=== PATIENT | male | born 1955 | race Caucasian/White ===

== ENCOUNTER 2020-08-20 09:49 | Inpatient (IN) ==
[2020-08-20] MEDS ORDERED: PANTOprazole 80 MG in DEXTROSE 5% 100 ML IV STA (10:37)
[2020-08-20] MEDS ORDERED: SODIUM CHLORIDE 0.9% 1000ML 1,000 ML IV SCH (10:45)
[2020-08-20 10:46] LABS: Basophils # (auto) 0.01 K/uL (0-0.2); Basophils % (auto) 0.1 %; Hematocrit (blood only) 32.6 % (42-52); Immature Granulocytes # (auto) 0.08 K/uL (0.00-0.02); Immature Granulocytes % (auto) 0.7 %; Lymphocytes % (auto) 15.9 %; Mean Corpuscular Hemoglobin 31.7 pg (25-34); Mean Corpuscular Hgb Conc 33.7 g/dL (32-36); Mean Corpuscular Volume 93.9 fL (80-100); Mean Platelet Volume 10.3 fL (7.4-10.4); Monocytes # (auto) 0.31 K/uL (0.11-0.59); Monocytes % (auto) 2.6 %; Neutrophils # (auto) 9.62 K/uL (1.4-6.5); Neutrophils % (auto) 80.7 %; Platelet Count 267 K/uL (130-400); RDW Coefficient of Variation 13.5 % (11.5-14.5); Red Blood Count 3.47 M/uL (4.7-6.1); White Blood Count 11.92 K/uL (4.8-10.8)
[2020-08-20 10:55] LABS: Alanine Aminotransferase 38 U/L (12-78); Albumin Level 3.1 gm/dl (3.4-5.0); Aspartate Aminotransferase 18 U/L (15-37); Blood Urea Nitrogen 55 mg/dl (7-18); Calcium 8.3 mg/dl (8.5-10.1); Carbon Dioxide 28 mmol/L (21-32); Chloride 110 mmol/L (98-107); Est GFR (African American) 59.4; Est GFR (Non-African American) 51.2; Glucose 251 mg/dl (70-99); Lipase 69 U/L (73-393); Potassium 4.2 mmol/L (3.5-5.1); Sodium 140 mmol/L (136-145)
[2020-08-20 11:00] LABS: Alkaline Phosphatase 46 U/L (45-117); Bilirubin,Total 0.7 mg/dl (0.2-1); Globulin 3.2 gm/dl (2.5-4.0); Total Protein 6.3 gm/dl (6.4-8.2); Troponin I < 0.015 ng/ml (0-0.045)
--- NOTE | 2020-08-20 11:18 | XRay Report ---
XR chest 1V portable HISTORY: 64 years-old Male syncope, fall, L cp acute syncope with left-sided chest pain status post fall COMPARISON: Chest radiograph 02/26/2015 TECHNIQUE: Portable AP view of the chest FINDINGS: Cardiac silhouette is mildly enlarged. No pneumothorax, pleural effusion or overt pulmonary edema. Mi ld interstitial coarsening of the lung bases. Degenerative changes of the shoulders and spine. Mild c ortical irregularity noted involving the lateral left ninth rib. IMPRESSION: 1. No acute cardiopulmonary abnormality. 2. Mild cortical irregularity involving the lateral left ninth rib. Correlate with point tenderness t o exclude an acute rib fracture. ACT 112: Negative or not required by law. The above report was generated using voice recognition software. It may contain grammatical, syntax o r spelling errors. Electronically signed by: Hilario Sol M.D. 08/20/2020 11:17 AM
[2020-08-20 11:28] LABS: INR 1.1 (0.9-1.1); Partial Thromboplastin Ratio 0.8; Partial Thromboplastin Time 21.1 Seconds (21.0-31.0); Prothrombin Time 11.3 Seconds (9.0-12.0)
[2020-08-20] MEDS ORDERED: IOVERSOL 100ml IV ONE (11:29)
--- NOTE | 2020-08-20 11:39 | Emergency Department Note ---
Impression & Plan Melena, Syncope, Elevated lactic acid level, Multiple fractures of ribs ED Provider Note Provider: Jason Berry MD DATE OF SERVICE:08/20/2020 CHIEF COMPLAINT: Syncope, black diarrhea HISTORY OF PRESENT ILLNESS: Patient is a 64-year-old gentleman with a history of hypertension and CVA presenting here today stating overnight had multiple episodes of black diarrhea overnight. Denies nausea or vomiting. Denies significant selena pain. Patient states he syncopized several times last night in the bathroom did fall and hit his head. Denies any given head pain. States he did bruise his right lip. Denies use of blood thinners but did take aspirin 2 days ago but inconsistently before that. Recent travel to visit his mother but denies sick contact. Denies shortness of breath states his little bit of pain initially he stated little bit of left anterior chest but later in the right anterior chest he states due to the fall. Denies injury to the extremity states he is having hands and needle sensation in his hands and feet. Patient denies use of alcohol use or other NSAIDs. Denies a history of gastric ulcerations to me. Denies any bright red blood in his stool. States he feels weak. REVIEW OF SYSTEMS: A total of 10 review of systems was obtained and negative except as stated above in the HPI. PAST MEDICAL HISTORY: As noted above MEDICATIONS: Reviewed home medications with the patient although he has been taking inconsistently he reports and did not take any blood pressure medicine this morning SOCIAL HISTORY: Denies heavy alcohol use. Non-smoker PHYSICAL EXAM: GENERAL: alert and oriented in no acute distress on stretcher but appears fatigued Head: normocephalic with some swelling overlying the right upper lip but no evidence of acute laceration. EYES: No injection, discharge or icterus. PERRL, EOMI. NECK: Trachea midline. Supple. ENT: Mucous membranes pink and moist. Pharynx without erythema or exudate. LUNGS: Airway patent. No retractions. Breath sounds clear with good air entry bilaterally.There is some dried blood at the bilateral nares without septal hematoma. HEART: Regular rate and rhythm. Initially some left chest wall tenderness on later reexam now more some right chest wall tenderness. ABDOMEN: Soft and non-tender, without guarding or rebound. No gross masses appreciated Rectal: With nurse mule spinner dried black melena present at the anal verge tested positive Hemoccult, no active red bleeding noted. SKIN: Acyanotic, warm, dry, without rashes EXTREMITIES: Without swelling, tenderness or deformity NEUROLOGICAL: No focal deficits. No aphasia. No facial droop or slurred speech. Normal strength and tone in the extremities. EK bpm sinus rhythm with rare fusion complex. No acute ST segment elevation noted question some ST depression in lead II. T wave inversion in aVF noted. Compared to previous from February 262014 no longer lateral ST changes but again question some lead to inferior changes in the ST segment. CONTINUOUS CARDIAC MONITORING: was ordered and showed a heart rate of 80s bpm in normal sinus rhythm GCS 15. Patient's laboratory studies and imaging reviewed. Differential includes Infection, dehydration, metabolic abnormality, hypo/hyperglycemia, electrolyte disturbance, anemia, hypoxia, cardiac sources, intracerebral event, toxicologic, neurologic, GI bleed, gastrointestinal as well as other pathologies. IMPRESSION/MEDICAL DECISION MAKING: Patient presents after multiple syncopal episodes and some black diarrhea last night. Hemoccult positive. Denies any vomiting or hematemesis. Denies significant history of alcohol abuse gastric ulcers to me. Patient does have some lip swelling after a fall last night imaging of the head face and neck were completed. Planes a low bit of right-sided chest pain and imaging of the chest as well as the abdomen pelvis given the bleeding was obtained. Given an 80 mg dose of Protonix here as well as 2 L of IV fluid. Hemoglobin is 11 today co mpared to 2-month ago that was 16. White count of 11.9 is noted. Some ISIDORO with a creatinine of 1.45 noted and lactate elevation of 5.6 noted. No troponin elevation. No evidence acute hepatitis or pancreatitis based on laboratory studies. Alcohol and blood cultures was added on after laboratory studies. CT the head and cervical spine without acute traumatic injury noted per radiology report and was completed given the fact that he fell and syncopized. CT of the face given some swelling of the right upper lip was noted and some bloody nose. Patient has some slight nasal tenderness and CT face questions a nasal fracture which is likely acute as he does have some tenderness here. CT t he chest and abdomen pelvis per radiology show possible evidence per radiology report of left third through sixth rib fractures. Patient again initially told me he suffered some left chest pain but on reevaluation stated it was more right-sided; unsure if he is the best historian. Luckily no pneumothorax is noted and no evidence of bowel obstruction or other inflammatory state such as diverticulitis in the abdomen is noted. Discussed with the patient given that his hemoglobin is dropped some and having melanotic stools with multiple syncopal episodes further observation and care here at the hospital he was in agreement. Hospitalist contacted. Do not believe the patient requires acute blood transfusion at this time. Covid test was negative. Medical alcohol returns undetectable. DIAGNOSIS: Melena, syncope, elevated lactate, multiple rib fractures DISPOSITION: Hospitalist will evaluate Patient was agreeable with this plan. Past Med/Surg History Medical History (Updated 08/20/20 @ 13:02 by Jason Berry M.D.) CVA (cerebral vascular accident) (~2013) Erectile disorder due to medical condition in male Gastric ulcer EGD (12/11) due to ongoing GI symptoms revealed nonbleeding gastric ulcer, duodenitits, esophagitis. [place] to be related to ASA use. Previously on chronic acid suppression with omeprazole Hyperlipidemia Hypertension Obstructive sleep apnea on CPAP Psoriasis Tubular adenoma of colon Screening colonoscopy (07/12) with tubular adenoma. 5 year follow up recommended (07/17) Surgical History No history of previous surgery Family History Mother Breast cancer Sister Breast cancer Father Myocardial infarction Grandfather Colon cancer maternal great grandfather Denies family history of Ovarian cancer Prostate cancer Social History Smoking Status: Never smoker Hx Alcohol Use: Yes Hx Substance Use: No Preferred Language: Indonesian marital status: / Current Living Situation: Alone current occupational status: employed current occupation: Musician Feels Safe at Home: Yes Childhood Exposure to Second-Hand Smoke: No Dental Care, Regularly: No Physical Activity Frequency: Daily Seatbelt Use: always Allergies Allergies Allergy/AdvReac Type Severity Reaction Status Date / Time lisinopril AdvReac cough Verified 08/20/20 11:07 Home Meds Home Medications Medication Instructions Recorded Confirmed aspirin 325 mg tablet 325 mg PO DAILY #30 tab 03/02/19 08/20/20 hydrochlorothiazide 25 mg tablet 12.5 mg PO QAM tab 06/21/20 08/20/20 losartan 100 mg PO QAM 08/20/20 08/20/20 Previous Rx's Medication Instructions Recorded guselkumab 100 mg/mL subcutaneous 100 mg SQ .COMPLEX #1 ml 08/10/20 auto-injector Results & Data (ED) Vital Signs Vital Signs - 24 hr 08/20/20 09:58 08/20/20 10:05 08/20/20 10:21 Temperature 35.3 C L 36.4 C L Temperature Source Temporal Artery Scan Oral Pulse Rate 93 H Pulse Rate [Apical] Pulse Rate from SpO2 Sensor Respiratory Rate 20 18 Respiratory Effort / Characteristics Non-Labored Spontaneous Blood Pressure 102/71 122/69 Blood Pressure [Left Arm] Blood Pressure Mean 81 86 Blood Pressure Mean [Left Arm] Blood Pressure Position Sitting Pulse Oximetry Oxygen Delivery Method Room Air Sepsis Recent Fever Within 48 Hours No Sepsis New/Unexplained Change in Mental Status No Sepsis Action Taken by Nursing No Action Required 08/20/20 10:24 08/20/20 10:26 08/20/20 10:30 Temperature Temperature Source Pulse Rate 93 H 93 H Pulse Rate [Apical] 93 H Pulse Rate from SpO2 Sensor Respiratory Rate 12 18 Respiratory Effort / Characteristics Blood Pressure Blood Pressure [Left Arm] Blood Pressure Mean Blood Pressure Mean [Left Arm] Blood Pressure Position Pulse Oximetry Oxygen Delivery Method Sepsis Recent Fever Within 48 Hours Sepsis New/Unexplained Change in Mental Status Sepsis Action Taken by Nursing 08/20/20 10:39 08/20/20 11:42 08/20/20 12:00 Temperature Temperature Source Pulse Rate 92 H 82 Pulse Rate [Apical] 82 Pulse Rate from SpO2 Sensor 83 Respiratory Rate 12 16 13 Respiratory Effort / Characteristics Blood Pressure 111/76 115/81 Blood Pressure [Left Arm] 114/78 Blood Pressure Mean 87 92 Blood Pressure Mean [Left Arm] 90 Blood Pressure Position Pulse Oximetry 97 98 Oxygen Delivery Method Room Air Room Air Sepsis Recent Fever Within 48 Hours Sepsis New/Unexplained Change in Mental Status Sepsis Action Taken by Nursing 08/20/20 12:31 08/20/20 13:00 08/20/20 13:30 Temperature Temperature Source Pulse Rate 84 82 87 Pulse Rate [Apical] Pulse Rate from SpO2 Sensor 83 Respiratory Rate 18 18 Respiratory Effort / Characteristics Blood Pressure 132/81 Blood Pressure [Left Arm] Blood Pressure Mean 98 Blood Pressure Mean [Left Arm] Blood Pressure Position Pulse Oximetry 96 Oxygen Delivery Method Room Air Room Air Sepsis Recent Fever Within 48 Hours Sepsis New/Unexplained Change in Mental Status Sepsis Action Taken by Nursing 08/20/20 14:00 Temperature Temperature Source Pulse Rate 85 Pulse Rate [Apical] Pulse Rate from SpO2 Sensor Respiratory Rate 16 Respiratory Effort / Characteristics Blood Pressure 156/89 H Blood Pressure [Left Arm] Blood Pressure Mean 111 Blood Pressure Mean [Left Arm] Blood Pressure Position Pulse Oximetry Oxygen Delivery Method Room Air Sepsis Recent Fever Within 48 Hours Sepsis New/Unexplained Change in Mental Status Sepsis Action Taken by Nursing Laboratory Data Result diagrams: 08/20/20 10:15 08/20/20 10:15 Lab Results 08/20/20 08/20/20 08/20/20 Range/Units 10:15 10:15 10:15 WBC 11.92 H (4.8-10.8) K/uL RBC 3.47 L (4.7-6.1) M/uL Hgb 11.0 L (14.0-18.0) g/dL Hct 32.6 L (42-52) % MCV 93.9 (80-100) fL MCH 31.7 (25-34) pg MCHC 33.7 (32-36) g/dL RDW Std Deviation 46.0 (36.4-46.3) fL RDW Coeff of Aletha 13.5 (11.5-14.5) % Plt Count 267 (130-400) K/uL MPV 10.3 (7.4-10.4) fL Immature Gran % (Auto) 0.7 % Neut % (Auto) 80.7 % Lymph % (Auto) 15.9 % Edgar % (Auto) 2.6 % Eos % (Auto) 0.0 % Baso % (Auto) 0.1 % Neut # (Auto) 9.62 H (1.4-6.5) K/uL Lymph # (Auto) 1.90 (1.2-3.4) K/uL Edgar # (Auto) 0.31 (0.11-0.59) K/uL Eos # (Auto) 0.00 (0-0.5) K/uL Baso # (Auto) 0.01 (0-0.2) K/uL Immature Gran # (Auto) 0.08 H (0.00-0.02) K/uL PT Cancelled INR Cancelled APTT Cancelled PTT Ratio Cancelled Sodium 140 (136-145) mmol/L Potassium 4.2 (3.5-5.1) mmol/L Chloride 110 H (98-107) mmol/L Carbon Dioxide 28 (21-32) mmol/L Anion Gap 2.0 L (3-11) BUN 55 H (7-18) mg/dl Creatinine 1.45 H (0.6-1.4) mg/dl Est Cr Clr Drug Dosing Not Reportable Est GFR ( Amer) 59.4 Est GFR (Non-Af Amer) 51.2 BUN/Creatinine Ratio 38.0 H (10-20) Glucose 251 H (70-99) mg/dl Lactate (0.4-2.0) mmol/L Calcium 8.3 L (8.5-10.1) mg/dl Total Bilirubin 0.7 (0.2-1) mg/dl AST 18 (15-37) U/L ALT 38 (12-78) U/L Alkaline Phosphatase 46 (45-117) U/L Troponin I < 0.015 (0-0.045) ng/ml Total Protein 6.3 L (6.4-8.2) gm/dl Albumin 3.1 L (3.4-5.0) gm/dl Globulin 3.2 (2.5-4.0) gm/dl Albumin/Globulin Ratio 1.0 (0.9-2) Lipase 69 L (73-393) U/L POC Stool Occult Blood (Negative) Ethyl Alcohol mg/dL (0-3) mg/dl COVID-19 Eval Order SARS-CoV-2, RNA, NAAT (NEGATIVE) Blood Type Antibody Screen 08/20/20 08/20/20 08/20/20 Range/Units 10:57 10:57 11:09 WBC (4.8-10.8) K/uL RBC (4.7-6.1) M/uL Hgb (14.0-18.0) g/dL Hct (42-52) % MCV (80-100) fL MCH (25-34) pg MCHC (32-36) g/dL RDW Std Deviation (36.4-46.3) fL RDW Coeff of Aletha (11.5-14.5) % Plt Count (130-400) K/uL MPV (7.4-10.4) fL Immature Gran % (Auto) % Neut % (Auto) % Lymph % (Auto) % Edgar % (Auto) % Eos % (Auto) % Baso % (Auto) % Neut # (Auto) (1.4-6.5) K/uL Lymph # (Auto) (1.2-3.4) K/uL Edgar # (Auto) (0.11-0.59) K/uL Eos # (Auto) (0-0.5) K/uL Baso # (Auto) (0-0.2) K/uL Immature Gran # (Auto) (0.00-0.02) K/uL PT 11.3 INR 1.1 APTT 21.1 PTT Ratio 0.8 Sodium (136-145) mmol/L Potassium (3.5-5.1) mmol/L Chloride (98-107) mmol/L Carbon Dioxide (21-32) mmol/L Anion Gap (3-11) BUN (7-18) mg/dl Creatinine (0.6-1.4) mg/dl Est Cr Clr Drug Dosing Est GFR ( Amer) Est GFR (Non-Af Amer) BUN/Creatinine Ratio (10-20) Glucose (70-99) mg/dl Lactate 5.6 H* (0.4-2.0) mmol/L Calcium (8.5-10.1) mg/dl Total Bilirubin (0.2-1) mg/dl AST (15-37) U/L ALT (12-78) U/L Alkaline Phosphatase (45-117) U/L Troponin I (0-0.045) ng/ml Total Protein (6.4-8.2) gm/dl Albumin (3.4-5.0) gm/dl Globulin (2.5-4.0) gm/dl Albumin/Globulin Ratio (0.9-2) Lipase (73-393) U/L POC Stool Occult Blood (Negative) Ethyl Alcohol mg/dL (0-3) mg/dl COVID-19 Eval Order SARS-CoV-2, RNA, NAAT (NEGATIVE) Blood Type A Positive Antibody Screen NEGATIVE 08/20/20 08/20/20 08/20/20 Range/Units 11:35 12:57 14:09 WBC (4.8-10.8) K/uL RBC (4.7-6.1) M/uL Hgb (14.0-18.0) g/dL Hct (42-52) % MCV (80-100) fL MCH (25-34) pg MCHC (32-36) g/dL RDW Std Deviation (36.4-46.3) fL RDW Coeff of Aletha (11.5-14.5) % Plt Count (130-400) K/uL MPV (7.4-10.4) fL Immature Gran % (Auto) % Neut % (Auto) % Lymph % (Auto) % Edgar % (Auto) % Eos % (Auto) % Baso % (Auto) % Neut # (Auto) (1.4-6.5) K/uL Lymph # (Auto) (1.2-3.4) K/uL Edgar # (Auto) (0.11-0.59) K/uL Eos # (Auto) (0-0.5) K/uL Baso # (Auto) (0-0.2) K/uL Immature Gran # (Auto) (0.00-0.02) K/uL PT INR APTT PTT Ratio Sodium (136-145) mmol/L Potassium (3.5-5.1) mmol/L Chloride (98-107) mmol/L Carbon Dioxide (21-32) mmol/L Anion Gap (3-11) BUN (7-18) mg/dl Creatinine (0.6-1.4) mg/dl Est Cr Clr Drug Dosing Est GFR ( Amer) Est GFR (Non-Af Amer) BUN/Creatinine Ratio (10-20) Glucose (70-99) mg/dl Lactate (0.4-2.0) mmol/L Calcium (8.5-10.1) mg/dl Total Bilirubin (0.2-1) mg/dl AST (15-37) U/L ALT (12-78) U/L Alkaline Phosphatase (45-117) U/L Troponin I (0-0.045) ng/ml Total Protein (6.4-8.2) gm/dl Albumin (3.4-5.0) gm/dl Globulin (2.5-4.0) gm/dl Albumin/Globulin Ratio (0.9-2) Lipase (73-393) U/L POC Stool Occult Blood Positive A (Negative) Ethyl Alcohol mg/dL < 3.0 (0-3) mg/dl COVID-19 Eval [facility] SARS-CoV-2, RNA, NAAT (NEGATIVE) Blood Type Antibody Screen 08/20/20 Range/Units 14:09 WBC (4.8-10.8) K/uL RBC (4.7-6.1) M/uL Hgb (14.0-18.0) g/dL Hct (42-52) % MCV (80-100) fL MCH (25-34) pg MCHC (32-36) g/dL RDW Std Deviation (36.4-46.3) fL RDW Coeff of Aletha (11.5-14.5) % Plt Count (130-400) K/uL MPV (7.4-10.4) fL Immature Gran % (Auto) % Neut % (Auto) % Lymph % (Auto) % Edgar % (Auto) % Eos % (Auto) % Baso % (Auto) % Neut # (Auto) (1.4-6.5) K/uL Lymph # (Auto) (1.2-3.4) K/uL Edgar # (Auto) (0.11-0.59) K/uL Eos # (Auto) (0-0.5) K/uL Baso # (Auto) (0-0.2) K/uL Immature Gran # (Auto) (0.00-0.02) K/uL PT INR APTT PTT Ratio Sodium (136-145) mmol/L Potassium (3.5-5.1) mmol/L Chloride (98-107) mmol/L Carbon Dioxide (21-32) mmol/L Anion Gap (3-11) BUN (7-18) mg/dl Creatinine (0.6-1.4) mg/dl Est Cr Clr Drug Dosing Est GFR ( Amer) Est GFR (Non-Af Amer) BUN/Creatinine Ratio (10-20) Glucose (70-99) mg/dl Lactate (0.4-2.0) mmol/L Calcium (8.5-10.1) mg/dl Total Bilirubin (0.2-1) mg/dl AST (15-37) U/L ALT (12-78) U/L Alkaline Phosphatase (45-117) U/L Troponin I (0-0.045) ng/ml Total Protein (6.4-8.2) gm/dl Albumin (3.4-5.0) gm/dl Globulin (2.5-4.0) gm/dl Albumin/Globulin Ratio (0.9-2) Lipase (73-393) U/L POC Stool Occult Blood (Negative) Ethyl Alcohol mg/dL (0-3) mg/dl COVID-19 Eval Order SARS-CoV-2, RNA, NAAT NEGATIVE (NEGATIVE) Blood Type Antibody Screen Administered Medications Pantoprazole Sodium 40 mg/ (Dextrose) 100 mls @ 20 mls/hr IV Q5H ALBER Stop: 09/19/20 13:59 Last Admin: 08/20/20 14:39 Dose: 8 mg/hr, 20 mls/hr Documented by: [id number] Discontinued Medications Sodium Chloride (Nss 1000ml) 1,000 mls @ 999 mls/hr IV .Q1H1M ALBER Stop: 08/20/20 11:45 Last Infusion: 08/20/20 12:40 Dose: 0 mls/hr Documented by: [id number] Admin: 08/20/20 11:39 Dose: 999 mls/hr Documented by: [id number] Pantoprazole Sodium 80 mg/ (Dextrose) 100 mls @ 400 mls/hr IV ONE STA Stop: 08/20/20 10:51 Last Infusion: 08/20/20 11:54 Dose: 0 mls/hr Documented by: [id number] Admin: 08/20/20 11:39 Dose: 400 mls/hr Documented by: [id number] Sodium Chloride (Nss 1000ml) 1,000 mls @ 999 mls/hr IV .Q1H1M ONE Stop: 08/20/20 12:51 Last Admin: 08/20/20 12:59 Dose: 999 mls/hr Documented by: [id number] Ioversol (Ioversol 100ml) 93 ml IV ONCE ONE Stop: 08/20/20 11:30 Last Admin: 08/20/20 11:29 Dose: 93 ml Documented by: [id number] Discharge Plan Visit Data Chief Complaint: Rectal Bleed Stated Complaint: BLACK STOOLS,FALLS,FEVER ED Provider: Jason Berry Discharge Problem: Melena, Syncope, Elevated lactic acid level, Multiple fractures of ribs Patient Disposition: Being Evaluated by Hospitalist Forms Stand Alone Forms: My [facility] [employer] Prescriptions Prescriptions: No Action Tremfya 100 mg/mL auto-injector 100 mg SQ .COMPLEX Qty: 1 RF: 2 aspirin 325 mg tablet 325 mg PO DAILY Qty: 30 RF: 0 hydrochlorothiazide 25 mg tablet 12.5 mg PO QAM RF: 0 losartan 100 mg tablet 100 mg PO QAM RF: 0 Referrals Referrals: Emmett Cabrera DO [Primary Care Provider] - Discharge Problem: Syncope Qualifiers: Syncope type: unspecified Qualified Code(s): R55 - Syncope and collapse Multiple fractures of ribs Qualifiers: Encounter type: initial encounter Fracture type: closed Laterality: left Qualified Code(s): S22.42XA - Multiple fractures of ribs, left side, initial encounter for closed fracture
[2020-08-20] MEDS ORDERED: SODIUM CHLORIDE 0.9% 1000ML 1,000 ML IV ONE (11:51)
--- NOTE | 2020-08-20 12:20 | Electrocardiogram Report ---
Test Reason : Blood Pressure : / mmHG Vent. Rate : 092 BPM Atrial Rate : 092 BPM P-R Int : 148 ms QRS Dur : 090 ms QT Int : 370 ms P-R-T Axes : 020 017 025 degrees QTc Int : 457 ms Sinus rhythm with Fusion complexes Nonspecific ST and T wave abnormality Abnormal ECG When compared with ECG of 26-FEB-2015 13:57, Fusion complexes are now Present Vent. rate has increased BY [address] now depressed in the inferior leads Nonspecific T wave abnormality, improved in Lateral leads Confirmed by Castillo Petit ([id number]) on 08/20/2020 12:20:29 PM Referred By: REFERRED SELF Confirmed By:Castillo Petit
--- NOTE | 2020-08-20 12:39 | CT Scan Report ---
CT head/brain wo con CLINICAL HISTORY: 64 years-old Male with fall. Acute head and facial injury status post fall TECHNIQUE: Multiple axial CT images of the head were obtained without contrast. A dose lowering tech nique was utilized adhering to the principles of ALARA. COMPARISON: CT cervical and maxillofacial studies of same day, head CT 02/26/2015. FINDINGS: No acute intracranial hemorrhage, midline shift, intracranial mass, hydrocephalus, territorial ischem ia or abnormal extra-axial collection. The calvarium is intact. The paranasal sinuses, mastoid air cells, and middle ear cavities are clear . IMPRESSION: No acute intracranial abnormality or calvarial fracture. ACT 112: Negative or not required by law. The above report was generated using voice recognition software. It may contain grammatical, syntax o r spelling errors. Electronically signed by: Hilario Sol M.D. 08/20/2020 12:38 PM
--- NOTE | 2020-08-20 12:43 | CT Scan Report ---
CT cervical spine wo con CLINICAL HISTORY: 64 years-old Male with fall. Acute head and neck injury status post fall COMPARISON: CT head and maxillofacial studies of same day TECHNIQUE: Multiple axial CT images of the cervical spine were obtained without contrast. A dose low ering technique was utilized adhering to the principles of ALARA. FINDINGS: Moderate to severe intervertebral disc space narrowing with spondylitic spurring and posterior disc o steophyte complex at C6/C7. Mild to moderate multilevel facet arthrosis. No acute fracture or subluxa tion. Multilevel foraminal narrowing. Lung apices are clear. There is no prevertebral edema. Calcified plaque of the left carotid bulb. IMPRESSION: No acute fracture or subluxation of the cervical spine. ACT 112: Negative or not required by law. The above report was generated using voice recognition software. It may contain grammatical, syntax o r spelling errors. Electronically signed by: Hilario Sol M.D. 08/20/2020 12:42 PM
--- NOTE | 2020-08-20 12:47 | CT Scan Report ---
CT facial bones wo con CLINICAL HISTORY: 64 years-old Male presenting with fall. Acute facial pain status post trauma COMPARISON STUDY: CT head and cervical spine studies of same day TECHNIQUE: High-resolution CT scan of the facial bones is performed. Images are reviewed in the axia l, sagittal, and coronal planes. IV contrast was not administered for this examination. A dose lower ing technique was utilized adhering to the principles of ALARA. FINDINGS: Unremarkable orbits. Streak artifact from dental amalgam hardware. The imaged intracranial structures are unremarkable. No opaque foreign body. The mastoid air cells and middle ear cavities are clear. M inimal mucosal thickening of the left maxillary bilateral ethmoid sinuses. Rightward bowing and spurr ing of the nasal septum. There is mild cortical irregularity of the right nasal bone with mild soft t issue prominence. There is a large periapical cysts noted involving the left maxillary third molar. M andible appears intact. IMPRESSION: 1. Mild cortical irregularity involving the right nasal bone is suggestive of an age-indeterminate fr acture. Correlate with point tenderness. 2. Mild paranasal sinus disease. 3. Large periapical cyst of the left third maxillary molar. ACT 112: Negative or not required by law. The above report was generated using voice recognition software. It may contain grammatical, syntax o r spelling errors. Electronically signed by: Hilario Sol M.D. 08/20/2020 12:45 PM
--- NOTE | 2020-08-20 12:56 | CT Scan Report ---
CHEST CT WITH CONTRAST; CT ABDOMEN AND PELVIS WITH IV CONTRAST ONLY CT DOSE: 4131.71 mGy.cm HISTORY: Acute chest and abdominal pain status post fall fall, ?rib frx TECHNIQUE: Multiaxial CT images of the chest, abdomen and pelvis were performed following the IV admi nistration of 93 cc of Optiray 320. A dose lowering technique was utilized adhering to the principl es of YANNA. COMPARISON: None. FINDINGS: CT CHEST: Unremarkable thyroid. No mediastinal hematoma. Heart is upper limits of normal in size. Mild coronary artery calcifications. There is no thoracic aortic aneurysm or dissection. The opacified pulmonary a rtery is unremarkable. No adenopathy. No pneumothorax, pleural effusion, airspace consolidation or ov ert pulmonary edema. There are no suspicious pulmonary nodules or masses. Central airways are patent. Unremarkable soft tissues. Degenerative changes of the shoulders and spine. Mild cortical angulation of the anterior left and third through sixth ribs without acute fracture line identified. No vertebr al body fracture identified. Mid thoracic dextroscoliosis. CT ABDOMEN/PELVIS: No pneumatosis or pneumoperitoneum. The spleen, pancreas, adrenal glands, gallbladder and liver appea r unremarkable. Patency of the hepatic and portal veins. Mild nonspecific bilateral perinephric edema . Kidneys are otherwise unremarkable. Unremarkable prostate and urinary bladder. Small fat filled lef t inguinal hernia. Mild mixed plaque of the abdominal aorta without aneurysm. There is no adenopathy. Tiny hiatal hernia. There is no bowel obstruction or bowel wall thickening. Mild colonic diverticulos is without acute diverticulitis. Mural fibrofatty changes of the appendiceal tip. No CT evidence of a cute appendicitis. Tiny fat filled periumbilical hernia. Mild lumbar levoscoliosis. No acute fracture . IMPRESSION: 1. Mild cortical irregularity involving the anterior left third through sixth ribs is suspicious for subtle acute nondisplaced fractures. Correlate with point tenderness. No pneumothorax. 2. There is otherwise no acute intrathoracic, intra-abdominal or intrapelvic abnormality identified. 3. No bowel obstruction. 4. Colonic diverticulosis. 5. Additional findings as above. ACT 112: Negative or not required by law. Electronically signed by: Hilario Sol M.D. 08/20/2020 12:54 PM
--- NOTE | 2020-08-20 13:55 | History & Physical Report ---
Date of Service August 20, 2020 Assessment & Plan (1) Acute GI bleeding: Pantoprazole bolus and IV drip. Clear liquid diet now then NPO after midnight Consult GI for possible need of EGD. (2) Acute blood loss anemia: Symptomatic with dizziness and syncope. Monitor H&H. Type and screen performed in ER. (3) Melena: Confirmed heme positive stool. Suspect UGI bleed (4) Syncope: Secondary to taking both antihypertensives (likely over treated due to patient intermittent nature of taking these). Likely to only need around 50mg losartan chronically but for now will discontinue both. (5) Elevated lactic acid level: Secondary to hypoperfusion from hypotension and GI bleed (6) Multiple fractures of ribs: No pain from left sided possible rib fractures. Incentive spirometry. (7) Dizziness: (8) Obstructive sleep apnea: CPAP HS (9) Hypertension: Discontinue antihypertensives. (10) Hyperlipidemia: (11) CVA (cerebral vascular accident): Discontinue aspirin currently. (12) Psoriasis: Treated with guselkumab as outpatient. Admission and Anticipated Discharge Date Admission Date: Aug 20, 2020 History of Present Illness Primary Care Provider: DO Gualberto Soaresgonzalo Ibarra is a 64 year old male who presents to the ER with melena, dizziness and a syncopal episode this morning. He reports intermittently taking his blood pressure medication and was out of them for a few days but then took both losartan and HCTZ yesterday. Started having dizziness especially when standing after this with black stools that increased throughout the day. He denies any NSAID use, although does take aspirin 325mg PO intermittently (unsure when he last took this. He does note drinking wine 1-2/day but reports last having alcohol 2 days ago with one beer. He denies any heavy alcohol use. No history of gastric ulcers or GI bleeds in the past. In the ER hemoglobin 11.0 from 16.1 in May. He underwent extensive imaging due to his syncopal episode which revealed mild cortical irregularities involving the anterior left 3-6 ribs suspicious for acute nondisplaced fractures however the patient was having no pain over this area. Additional mild cortical irregularity involving the right nasal bone was suggestive for an age- indeterminate fracture which to correlate with pain over this area. Incidental finding of a large periapical cyst in the left third maxillary molar -he denies any having any pain here but does have a noticeable cavity. Allergies Allergy/AdvReac Type Severity Reaction Status Date / Time lisinopril AdvReac Mild cough Verified 08/21/20 11:22 Home Medications Medication Instructions Recorded Confirmed Type aspirin 325 mg tablet 325 mg PO DAILY #30 tab 03/02/19 08/20/20 History hydrochlorothiazide 25 mg tablet 12.5 mg PO QAM tab 06/21/20 08/20/20 History guselkumab 100 mg/mL subcutaneous 100 mg SQ .COMPLEX #1 ml 08/10/20 08/20/20 Rx auto-injector losartan 100 mg PO QAM 08/20/20 08/20/20 History Past Med/Surg History Medical History (Updated 08/21/20 @ 10:10 by Maria A Willson MD) CVA (cerebral vascular accident) (~2013) Erectile disorder due to medical condition in male Gastric ulcer EGD (12/11) due to ongoing GI symptoms revealed nonbleeding gastric ulcer, duodenitits, esophagitis. [place] to be related to ASA use. Previously on chronic acid suppression with omeprazole Hyperlipidemia Hypertension Obstructive sleep apnea on CPAP Psoriasis Rib fracture Tubular adenoma of colon Screening colonoscopy (07/12) with tubular adenoma. 5 year follow up recommended (07/17) Surgical History No history of previous surgery Family History Mother Breast cancer Sister Breast cancer Father Myocardial infarction Grandfather Colon cancer maternal great grandfather Denies family history of Ovarian cancer Prostate cancer Social History Smoking Status: Never smoker Hx Alcohol Use: Yes Alcohol type: beer Hx Substance Use: No Preferred Language: Croatian Communication Ability: Effective Multimedia Assistant Required: No Beliefs That Will Affect Care: None marital status: / Current Living Situation: Alone current occupational status: employed current occupation: Musician Other Information That Helps Us Care for You: No Feels Safe at Home: Yes Safety Concerns: Feels Safe At This Time Childhood Exposure to Second-Hand Smoke: No Dental Care, Regularly: No Physical Activity Frequency: Daily Seatbelt Use: always Assistive Devices: Walker Review of Systems Review of Systems: All systems reviewed & are unremarkable except as noted in HPI & below Musculoskeletal: Right lower rib Physical Exam Constitutional: well developed and well nourished; no acute distress Eyes: + anicteric sclerae; no conjunctival abnormality and normal pupil size ENMT: Ears: no external ear abnormality Nose: + external nose abnormality Mouth: + dry oral mucous membranes Neck: trachea midline, no thyromegaly Respiratory: normal respiratory effort, lungs clear to auscultation Cardiovascular: Rate/Rhythm: regular rate and regular rhythm Heart Sounds: no murmur Vessels: no JVD Extremities: normal capillary refill; no calf tenderness and no pedal edema Gastrointestinal (Abdomen): Inspection/Auscultation: normal bowel sounds; abdomen not distended Percussion/Palpation: + abdomen tender (mild LUQ on deep palpation) and abdomen soft; no guarding and abdomen not rigid Musculoskeletal: no cyanosis or clubbing, extremities motor strength 5/5 Skin: no rashes, warm and dry Neurologic: moves all extremities and awake; no focal motor deficits and not confused Psychiatric: A+Ox3, euthymic affect Genitourinary: no CVA tenderness Results & Data Results & Data ([facility]) Vital Signs (Past 12 Hours) Vital Signs Temp Pulse Pulse Resp BP BP Pulse Ox 08/20/20 13:30 87 18 08/20/20 13:00 82 18 132/81 08/20/20 12:31 84 96 08/20/20 12:00 82 13 115/81 98 08/20/20 11:42 82 16 114/78 97 08/20/20 10:39 92 H 12 111/76 08/20/20 10:30 93 H 18 08/20/20 10:26 93 H 12 08/20/20 10:24 93 H 08/20/20 10:21 36.4 C L 08/20/20 10:05 93 H 18 122/69 08/20/20 09:58 35.3 C L 20 102/[address] head/brain wo con IMPRESSION: No acute intracranial abnormality or calvarial fracture. CT facial bones wo con IMPRESSION: 1. Mild cortical irregularity involving the right nasal bone is suggestive of an age-indeterminate fracture. Correlate with point tenderness. 2. Mild paranasal sinus disease. 3. Large periapical cyst of the left third maxillary molar. CT cervical spine wo con IMPRESSION: No acute fracture or subluxation of the cervical spine. CHEST CT WITH CONTRAST; CT ABDOMEN AND PELVIS WITH IV CONTRAST ONLY IMPRESSION: 1. Mild cortical irregularity involving the anterior left third through sixth ribs is suspicious for subtle acute nondisplaced fractures. Correlate with point tenderness. No pneumothorax. 2. There is otherwise no acute intrathoracic, intra-abdominal or intrapelvic abnormality identified. 3. No bowel obstruction. 4. Colonic diverticulosis. 5. Additional findings as above. XR chest 1V portable IMPRESSION: 1. No acute cardiopulmonary abnormality. 2. Mild cortical irregularity involving the lateral left ninth rib. Correlate with point tenderness to exclude an acute rib fracture. Medications Administered ER medications given: Pantoprazole 80 mg IV NSS 1 hour bolus ECG Indication: chest pain (right lower rib) Rate (beats per minute): 92 Findings: + other (Inferior T wave flattening x1 fusion complexes) Comparison ECG Date: from (February 26, 2015) Change: the following changes noted (Nonspecific T wave normality in inferior leads is new) Code Status & VTE Plan Code Status Full VTE Prophylaxis Plan VTE Prophylaxis will be ordered: Yes Reason for no VTE drug order: Contraindicated PG Care Time/CCT Total # of Minutes Spent Total Time Spent with Patient: Total time spent is greater than 50% in coordination of care (as documented) at patient's floor/unit and/or counseling patient: Coding Level of Care Code 73361 Initial Inpt Care Lvl 3 Diagnoses Acute GI bleeding K92.2 Acute blood loss anemia D62 Melena K92.1 Syncope R55 Syncope type: unspecified Elevated lactic acid level R79.89 Multiple fractures of ribs S22.42XA Encounter type: initial encounter Fracture type: closed Laterality: left Dizziness R42 Obstructive sleep apnea G47.33 Hypertension I10 Hyperlipidemia E78.5 CVA (cerebral vascular accident) I63.9 Psoriasis L40.9 (1) Multiple fractures of ribs Encounter type: initial encounter Fracture type: closed Laterality: left Qualified Code(s): S22.42XA - Multiple fractures of ribs, left side, initial encounter for closed fracture (2) Syncope Syncope type: unspecified Qualified Code(s): R55 - Syncope and collapse
[2020-08-20] MEDS: PANTOprazole 40 MG in DEXTROSE 5% 100 ML IV SCH ×2 (14:39→19:58)
[2020-08-20] MEDS ORDERED: ACETAMINOPHEN 325 MG TAB PO PRN (16:06)
[2020-08-20] MEDS ORDERED: GLUCOSE 10 TABS/TUBE PO PRN (16:06)
[2020-08-20] MEDS ORDERED: GLUCOSE 40% GEL 15 GM TUBE PO PRN (16:06)
[2020-08-20] MEDS ORDERED: GLUCAGON FOR INJ 1 MG VIAL SQ PRN (16:06)
[2020-08-20] MEDS ORDERED: DEXTROSE 50% 50 ML SYRINGE IV PRN (16:06)
[2020-08-20] MEDS ORDERED: CARBOHYDRATES FOR HYPOGLYCEMIA PO PRN (16:06)
[2020-08-20] MEDS ORDERED: ONDANSETRON INJ 2 MG/ML 2 ML VIAL IV PRN (16:06)
[2020-08-20] MEDS ORDERED: NORMOSOL-R 1,000 ML IV ONE (17:14)
[2020-08-20 19:17] LABS: Hematocrit (blood only) 27.4 % (42-52); Hemoglobin 9.1 g/dL (14.0-18.0)
[2020-08-20] MEDS: SODIUM CHLORIDE 0.45 % 1,000 ML IV SCH (20:34)
[2020-08-21] MEDS: PANTOprazole 40 MG in DEXTROSE 5% 100 ML IV SCH ×5 (01:16→19:57)
[2020-08-21] MEDS: SODIUM CHLORIDE 0.45 % 1,000 ML IV SCH ×3 (04:27→19:57)
[2020-08-21 05:52] LABS: Basophils # (auto) 0.01 K/uL (0-0.2); Basophils % (auto) 0.1 %; Eosinophils # (auto) 0.06 K/uL (0-0.5); Eosinophils % (auto) 0.6 %; Hematocrit (blood only) 23.2 % (42-52); Hemoglobin 7.9 g/dL (14.0-18.0); Immature Granulocytes # (auto) 0.04 K/uL (0.00-0.02); Immature Granulocytes % (auto) 0.4 %; Lymphocytes % (auto) 21.8 %; Mean Corpuscular Hemoglobin 32.1 pg (25-34); Mean Corpuscular Hgb Conc 34.1 g/dL (32-36); Mean Corpuscular Volume 94.3 fL (80-100); Mean Platelet Volume 9.7 fL (7.4-10.4); Monocytes # (auto) 1.09 K/uL (0.11-0.59); Monocytes % (auto) 10.8 %; Neutrophils # (auto) 6.68 K/uL (1.4-6.5); Neutrophils % (auto) 66.3 %; Platelet Count 186 K/uL (130-400); RDW Coefficient of Variation 13.8 % (11.5-14.5); RDW Standard Deviation 47.1 fL (36.4-46.3); Red Blood Count 2.46 M/uL (4.7-6.1); White Blood Count 10.08 K/uL (4.8-10.8)
[2020-08-21 06:31] LABS: RBC Morphology Unremarkable
[2020-08-21 06:48] LABS: Calcium 7.5 mg/dl (8.5-10.1); Creatinine Clr Calc Pharmacy 85.6 ml/min; Est GFR (African American) 83.9; Est GFR (Non-African American) 72.4; Potassium 4.1 mmol/L (3.5-5.1)
--- NOTE | 2020-08-21 09:19 | Anesthesiology Consultation ---
Date of Service August 21, 2020 Discussed the patient with the medicine team. They will start transfusing 1 U PRBC prior to OR. History Surgery Operation Date: 08/21/20 11:00 Proposed Procedures p Esophagogastroduodenoscopy - Maria A Willson MD Height/Weight Height: 5 ft 10 in Weight: 105.9 kg Allergies Allergy/AdvReac Type Severity Reaction Status Date / Time lisinopril AdvReac Mild cough Verified 08/21/20 11:22 Medications Home Medications Medication Instructions Recorded Confirmed Last Taken aspirin 325 mg tablet 325 mg PO DAILY #30 tab 03/02/19 08/20/20 Unknown hydrochlorothiazide 25 mg tablet 12.5 mg PO QAM tab 06/21/20 08/20/20 08/13/20 guselkumab 100 mg/mL subcutaneous 100 mg SQ .COMPLEX #1 ml 08/10/20 08/20/20 Unknown auto-injector losartan 100 mg PO QAM 08/20/20 08/20/20 08/19/20 Active Medications Generic Name Dose Route Start Last Admin Trade Name Freq PRN Reason Stop Dose Admin Pantoprazole Sodium 40 mg/ 100 mls @ 20 mls/hr 08/20/20 14:00 08/21/20 11:32 Dextrose IV 09/19/20 13:59 8 mg/hr Q5H ALBER 20 mls/hr Administration 8 MG/HR Sodium Chloride 1,000 mls @ 125 mls/hr 08/20/20 19:15 08/21/20 11:31 1/2 Nss IV 09/19/20 19:14 125 mls/hr .Q8H ALBER Administration Past Medical History Medical History (Updated 08/21/20 @ 10:10 by Maria A Willson MD) CVA (cerebral vascular accident) (~2013) Erectile disorder due to medical condition in male Gastric ulcer EGD (12/11) due to ongoing GI symptoms revealed nonbleeding gastric ulcer, duodenitits, esophagitis. [place] to be related to ASA use. Previously on chronic acid suppression with omeprazole Hyperlipidemia Hypertension Obstructive sleep apnea on CPAP Psoriasis Rib fracture Tubular adenoma of colon Screening colonoscopy (07/12) with tubular adenoma. 5 year follow up recommended (07/17) Past Family History Family History Mother Breast cancer Sister Breast cancer Father Myocardial infarction Grandfather Colon cancer maternal great grandfather Denies family history of Ovarian cancer Prostate cancer Past Surgical History Surgical History No history of previous surgery Social History Smoking Status: Never smoker Hx Alcohol Use: Yes Alcohol type: beer alcohol intake frequency: a few times a month Hx Substance Use: No Physical Exam Vital Signs Last Vital Signs Temp 36.8 C 08/21/20 11:45 Pulse 77 08/21/20 11:45 Resp 18 08/21/20 11:45 BP 120/74 08/21/20 11:45 Pulse Ox 96 08/21/20 11:45 Testing Laboratory Results 08/21/20 10:58 08/21/20 05:22 PT 11.3 Seconds (9.0-12.0) 08/20/20 11:09 INR 1.1 (0.9-1.1) 08/20/20 11:09 APTT 21.1 Seconds (21.0-31.0) 08/20/20 11:09 Blood Type A Positive 08/20/20 10:57 Antibody Screen NEGATIVE 08/20/20 10:57 Electrocardiogram Date: 08/21/20 Sinus rhythm with Fusion complexes Nonspecific ST and T wave abnormality Abnormal ECG When compared with ECG of 26-FEB-2015 13:57, Fusion complexes are now Present Vent. rate has increased BY [address] now depressed in the inferior leads Nonspecific T wave abnormality, improved in Lateral leads Confirmed by Castillo Petit ([id number]) on 08/20/2020 12:20:29 PM Chest X-Ray Date: 08/20/20 PRESSION: 1. No acute cardiopulmonary abnormality. 2. Mild cortical irregularity involving the lateral left ninth rib. Correlate with point tenderness to exclude an acute rib fracture. Other Testing Head CT 08/20/20 IMPRESSION: No acute intracranial abnormality or calvarial fracture.
--- NOTE | 2020-08-21 10:05 | Gastrointestinal Consultation ---
Date of Consultation August 21, 2020 Assessment & Plan (1) Melena: Urgent EGD today. IV PPI. (2) Anemia: History of Present Illness Attending Physician: Rick Linder DO 64 years old male patient with medical comorbids of HTN, Dyslipidemia, presented with black stool and syncope, found to have drop in H/H with elevated BUN concerning for UGIB. He denies abdominal pain, nausea or vomiting, uses ASA 325 mg intermittently with occasional alcohol use. No constipation or weight loss. Never had similar episodes in the past, no prior EGD. Allergies Allergy/AdvReac Type Severity Reaction Status Date / Time lisinopril AdvReac cough Verified 08/20/20 11:07 Home Medications Medication Instructions Recorded Confirmed Type aspirin 325 mg tablet 325 mg PO DAILY #30 tab 03/02/19 08/20/20 History hydrochlorothiazide 25 mg tablet 12.5 mg PO QAM tab 06/21/20 08/20/20 History guselkumab 100 mg/mL subcutaneous 100 mg SQ .COMPLEX #1 ml 08/10/20 08/20/20 Rx auto-injector losartan 100 mg PO QAM 08/20/20 08/20/20 History Patient History Medical History (Updated 08/21/20 @ 10:10 by Maria A Willson MD) CVA (cerebral vascular accident) (~2013) Erectile disorder due to medical condition in male Gastric ulcer EGD (12/11) due to ongoing GI symptoms revealed nonbleeding gastric ulcer, duodenitits, esophagitis. [place] to be related to ASA use. Previously on chronic acid suppression with omeprazole Hyperlipidemia Hypertension Obstructive sleep apnea on CPAP Psoriasis Rib fracture Tubular adenoma of colon Screening colonoscopy (07/12) with tubular adenoma. 5 year follow up recommended (07/17) Surgical History No history of previous surgery Family History Mother Breast cancer Sister Breast cancer Father Myocardial infarction Grandfather Colon cancer maternal great grandfather Denies family history of Ovarian cancer Prostate cancer Social History Smoking Status: Never smoker Hx Alcohol Use: Yes Alcohol type: beer Hx Substance Use: No Preferred Language: Welsh Communication Ability: Effective Estimating Engineer Required: No Beliefs That Will Affect Care: None marital status: / Current Living Situation: Alone current occupational status: employed current occupation: Musician Other Information That Helps Us Care for You: No Feels Safe at Home: Yes Safety Concerns: Feels Safe At This Time Childhood Exposure to Second-Hand Smoke: No Dental Care, Regularly: No Physical Activity Frequency: Daily Seatbelt Use: always Assistive Devices: CPAP Review of Systems Constitutional: no fever, no chills, no fatigue and no weight loss Eyes: no eye pain and no worsening vision Ear, Nose, Mouth, Throat: no tinnitus, no dizziness, no nasal discharge and no epistaxis Respiratory: no cough, no dyspnea, no dyspnea on exertion and no wheezing Cardiovascular: no chest pain, no orthopnea, no palpitations and no edema Gastrointestinal: as per Subjective / HPI Musculoskeletal: no stiffness and no myalgia Neurologic: no localized weakness, no paralysis, no tremor(s) and no headache(s) Endocrine: no polydipsia and no polyuria Hematologic / Lymphatic: no easy bleeding and no night sweats Physical Exam Constitutional: + well hydrated, cooperative and comfortable Eyes: PERRL, conjunctivae normal, anicteric sclerae ENMT: external ear and nose normal, oropharynx normal Neck: normal visual inspection and trachea midline Respiratory: normal respiratory effort, lungs clear to auscultation Auscultation: no wheezes Cardiovascular: RRR, no murmur, no edema Gastrointestinal (Abdomen): normal bowel sounds, soft, nontender, no hepatosplenomegaly Musculoskeletal: no cyanosis or clubbing, extremities motor strength 5/5 Skin: no rashes, warm and dry Neurologic: awake; no focal motor deficits Motor/Sensory: no tremor Results & Data ([facility]) Vital Signs (Past 12 Hours) Vital Signs Temp Pulse Resp BP Pulse Ox 08/21/20 06:56 37.3 C 79 20 127/77 94 08/21/20 02:36 37.3 C 91 H 18 111/70 95 08/20/20 22:46 37.2 C 95 H 18 115/75 95 Laboratory Results Laboratory Results - last 24 hr 08/20/20 08/20/20 08/20/20 10:15 10:15 10:15 WBC 11.92 H RBC 3.47 L Hgb 11.0 L Hct 32.6 L MCV 93.9 MCH 31.7 MCHC 33.7 RDW Std Deviation 46.0 RDW Coeff of Aletha 13.5 Plt Count 267 MPV 10.3 Immature Gran % (Auto) 0.7 Neut % (Auto) 80.7 Lymph % (Auto) 15.9 [place] % (Auto) 2.6 Eos % (Auto) 0.0 Baso % (Auto) 0.1 Neut # (Auto) 9.62 H Lymph # (Auto) 1.90 [place] # (Auto) 0.31 Eos # (Auto) 0.00 Baso # (Auto) 0.01 Immature Gran # (Auto) 0.08 H RBC Morphology PT Cancelled INR Cancelled APTT Cancelled PTT Ratio Cancelled Sodium 140 Potassium 4.2 Chloride 110 H Carbon Dioxide 28 Anion Gap 2.0 L BUN 55 H Creatinine 1.45 H Est Cr Clr Drug Dosing Not Reportable Est GFR ( Amer) 59.4 Est GFR (Non-Af Amer) 51.2 BUN/Creatinine Ratio 38.0 H Glucose 251 H POC Glucose Lactate Calcium 8.3 L Total Bilirubin 0.7 AST 18 ALT 38 Alkaline Phosphatase 46 Troponin I < 0.015 Total Protein 6.3 L Albumin 3.1 L Globulin 3.2 Albumin/Globulin Ratio 1.0 Lipase 69 L Specimen Hemolysis POC Stool Occult Blood Ethyl Alcohol mg/dL COVID-19 Eval Order SARS-CoV-2, RNA, NAAT Blood Type Antibody Screen 08/20/20 08/20/20 08/20/20 10:57 10:57 11:09 WBC RBC Hgb Hct MCV MCH MCHC RDW Std Deviation RDW Coeff of Aletha Plt Count MPV Immature Gran % (Auto) Neut % (Auto) Lymph % (Auto) [place] % (Auto) Eos % (Auto) Baso % (Auto) Neut # (Auto) Lymph # (Auto) [place] # (Auto) Eos # (Auto) Baso # (Auto) Immature Gran # (Auto) RBC Morphology PT 11.3 INR 1.1 APTT 21.1 PTT Ratio 0.8 Sodium Potassium Chloride Carbon Dioxide Anion Gap BUN Creatinine Est Cr Clr Drug Dosing Est GFR ( Amer) Est GFR (Non-Af Amer) BUN/Creatinine Ratio Glucose POC Glucose Lactate 5.6 H* Calcium Total Bilirubin AST ALT Alkaline Phosphatase Troponin I Total Protein Albumin Globulin Albumin/Globulin Ratio Lipase Specimen Hemolysis POC Stool Occult Blood Ethyl Alcohol mg/dL COVID-19 Eval Order SARS-CoV-2, RNA, NAAT Blood Type A Positive Antibody Screen NEGATIVE 08/20/20 08/20/20 08/20/20 11:35 12:57 14:09 WBC RBC Hgb Hct MCV MCH MCHC RDW Std Deviation RDW Coeff of Aletha Plt Count MPV Immature Gran % (Auto) Neut % (Auto) Lymph % (Auto) [place] % (Auto) Eos % (Auto) Baso % (Auto) Neut # (Auto) Lymph # (Auto) [place] # (Auto) Eos # (Auto) Baso # (Auto) Immature Gran # (Auto) RBC Morphology PT INR APTT PTT Ratio Sodium Potassium Chloride Carbon Dioxide Anion Gap BUN Creatinine Est Cr Clr Drug Dosing Est GFR ( Amer) Est GFR (Non-Af Amer) BUN/Creatinine Ratio Glucose POC Glucose Lactate Calcium Total Bilirubin AST ALT Alkaline Phosphatase Troponin I Total Protein Albumin Globulin Albumin/Globulin Ratio Lipase Specimen Hemolysis POC Stool Occult Blood Positive A Ethyl Alcohol mg/dL < 3.0 COVID-19 Eval Order Covid19 [facility] SARS-CoV-2, RNA, NAAT Blood Type Antibody Screen 08/20/20 08/20/20 08/20/20 14:09 14:25 16:28 WBC RBC Hgb Hct MCV MCH MCHC RDW Std Deviation RDW Coeff of Aletha Plt Count MPV Immature Gran % (Auto) Neut % (Auto) Lymph % (Auto) [place] % (Auto) Eos % (Auto) Baso % (Auto) Neut # (Auto) Lymph # (Auto) [place] # (Auto) Eos # (Auto) Baso # (Auto) Immature Gran # (Auto) RBC Morphology PT INR APTT PTT Ratio Sodium Potassium Chloride Carbon Dioxide Anion Gap BUN Creatinine Est Cr Clr Drug Dosing Est GFR ( Amer) Est GFR (Non-Af Amer) BUN/Creatinine Ratio Glucose POC Glucose 108 H Lactate 3.5 H* Calcium Total Bilirubin AST ALT Alkaline Phosphatase Troponin I Total Protein Albumin Globulin Albumin/Globulin Ratio Lipase Specimen Hemolysis POC Stool Occult Blood Ethyl Alcohol mg/dL COVID-19 Eval Order SARS-CoV-2, RNA, NAAT NEGATIVE Blood Type Antibody Screen 08/20/20 08/20/20 08/21/20 17:58 20:10 05:22 WBC 10.08 RBC 2.46 L Hgb 9.1 L 7.9 L Hct 27.4 L 23.2 L MCV 94.3 MCH 32.1 MCHC 34.1 RDW Std Deviation 47.1 H RDW Coeff of Aletha 13.8 Plt Count 186 MPV 9.7 Immature Gran % (Auto) 0.4 Neut % (Auto) 66.3 Lymph % (Auto) 21.8 [place] % (Auto) 10.8 Eos % (Auto) 0.6 Baso % (Auto) 0.1 Neut # (Auto) 6.68 H Lymph # (Auto) 2.20 [place] # (Auto) 1.09 H Eos # (Auto) 0.06 Baso # (Auto) 0.01 Immature Gran # (Auto) 0.04 H RBC Morphology Unremarkable PT INR APTT PTT Ratio Sodium Potassium Chloride Carbon Dioxide Anion Gap BUN Creatinine Est Cr Clr Drug Dosing Est GFR ( Amer) Est GFR (Non-Af Amer) BUN/Creatinine Ratio Glucose POC Glucose 115 H Lactate Calcium Total Bilirubin AST ALT Alkaline Phosphatase Troponin I Total Protein Albumin Globulin Albumin/Globulin Ratio Lipase Specimen Hemolysis POC Stool Occult Blood Ethyl Alcohol mg/dL COVID-19 Eval Order SARS-CoV-2, RNA, NAAT Blood Type Antibody Screen 08/21/20 05:22 WBC RBC Hgb Hct MCV MCH MCHC RDW Std Deviation RDW Coeff of Aletha Plt Count MPV Immature Gran % (Auto) Neut % (Auto) Lymph % (Auto) [place] % (Auto) Eos % (Auto) Baso % (Auto) Neut # (Auto) Lymph # (Auto) [place] # (Auto) Eos # (Auto) Baso # (Auto) Immature Gran # (Auto) RBC Morphology PT INR APTT PTT Ratio Sodium 143 Potassium 4.1 Chloride 113 H Carbon Dioxide 30 Anion Gap 0 L BUN 30 H Creatinine 1.09 Est Cr Clr Drug Dosing 85.6 Est GFR ( Amer) 83.9 Est GFR (Non-Af Amer) 72.4 BUN/Creatinine Ratio 28.0 H Glucose 120 H POC Glucose Lactate Calcium 7.5 L Total Bilirubin AST ALT Alkaline Phosphatase Troponin I Total Protein Albumin Globulin Albumin/Globulin Ratio Lipase Specimen Hemolysis POC Stool Occult Blood Ethyl Alcohol mg/dL COVID-19 Eval Order SARS-CoV-2, RNA, NAAT Blood Type Antibody Screen
--- NOTE | 2020-08-21 10:54 | Hospitalist Progress Note ---
Date of Service August 21, 2020 Assessment & Plan (1) Anemia: Jason is a 64yo M who presents with new onset melena and an episode of syncope and who is admitted for syncope and acute GIB Syncope, suspect vasovagal with concurrent GIB - GIB management as below - New systolic murmur on exam - TTE pending - Hgb acutely decreased as noted below - CT-H with naf, CT-C shows possible L rib fxr without other acute findings, Ct- Ab diverticulosis with no signs of mass, perf, or obstruction, CT-Spine negative but with incidental calcium carotid deposits, CT-nasal shows possible R nasal bone fxr. - ~1mm ST depressions appreciated on EKG. Pt without chest pain, chest pressure, SoB, shoulder pain, lightheadedness at time of assessment. Suspect demand related with acute GIB and tachycardia on admission, repeat pending. Acute Anemia 2/2 GIB - Baseline Hgb ~16. Decreased to 11 on admission, further decreased to 7.9 on followup H&H - Pt with hx of intermittent full dose aspirin use, no hx of NSAID use. Denies prior history of GERD, GI ulcers, and melena prior to 3 days before admission - Suspect acute bleed with subsequent dilutional anemia. No episode of melena today, no clinical signs of ongoing bleeding. HR 79, normotensive this morning - Continue protonix gtt - GI Consulted, anticipate endoscopy - Tranfusion threshold 7.0 - Repeat H&H pending HTN - Hold losartan - Continue hctz post procedure - Hold ASA FENGI: NPO. NSS 125cc/hr DVT PPx: Pharmacoppx contraindicated 2/2 acute bleed. SCDs. Dispo: MedTele Code Status: Full Code (2) Acute blood loss anemia: (3) Melena: (4) Syncope: (5) Multiple fractures of ribs: (6) Obstructive sleep apnea: (7) Tubular adenoma of colon: (8) Hypertension: (9) Hyperlipidemia: (10) CVA (cerebral vascular accident): Admission and Anticipated Discharge Date Admission Date: August 20, 2020 Supervising Physician Co-Signing Physician Notes I personally examined the patient and verified all herring points of history and exam, discussed case, and agree with decision making with Dr Sorto feeling ok overall - just somewhat tired appearing. no further bleeding/BM that he's noted. d/w anesthesia. vitals noted nad but fatigued appearing heent nc at mmm abd soft nd specifically no epigastric tenderness no guarding no rebound GI bleeding with acute blood loss anemia - ongoing Hgb drop and questionable EKG changes (although asymptomatic) - transfuse 1 unit and follow syncope - almost certainly from blood loss but with age/male and questionable EKG changes - w/u as above questionable EKG changes - asymptomatic - if real -- main management at this point would be reducing metabolic/physiologic stress by stopping bleeding - and transfuse as above. after bleeding situation more stable then can consider stress testing/etc otherwise as above Maile Gomez is seen at the bedside this morning. He reports he feels well and at his normal baseline. He denies melena/BM today. He reports he does not feel lightheaded, and denies chest pain, chest pressure, palpitations, shortness of breath, shoulder pain, and fatigue at time of assessment. Denies abdominal pain. Denies nausea/vomiting this morning. 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 He denies melena prior to this. He reports he has had intermittent black BMs since Saturday, and following a bowel movement had the episode of syncope that cause him to hit his face and present to the ER. He denies chest pain with this episode. Took his BP meds day before admit and felt dizzy when standing up. Otherwise prior to this he denies increasing chest pain, exercise intolerance, worsening shortness of breath/chest pain with exercise, palptations, syncope, and presyncope. Denies preceeding reflux/heartburn. Denies NSAID use. Review of Systems Review of Systems: All systems reviewed & are unremarkable except as noted in HPI & below Physical Exam Physical Exam: General: A&Ox3. NAD. Cooperative. HEENT: Atraumatic, normocephalic. Visual acuity grossly intact. Hearing grossly intact. PERLAA. Pallor not appreciated. Pulm: CTAB A&P. -wheezes, -rales, -rhonchi. Symmetrical chest rise. No increase work of breathing. No respiratory distress. Cardiac: RRR, +systolic murmur IV/. Radial pulses intact and symmetrical. Abdominal: Nontender, nondistended, soft. BS present. Extremities: Warm, dry. Moving all extremities equally. PT and radial pulses intact and symmetrical. No edema. Sensation to soft touch intact in fingers and toes bilaterally without deficit. Results & Data Results & Data ([facility]) Vital Signs (Past 12 Hours) Vital Signs Temp Pulse Resp BP Pulse Ox 08/21/20 06:56 37.3 C 79 20 127/77 94 08/21/20 02:36 37.3 C 91 H 18 111/70 95 08/20/20 22:46 37.2 C 95 H 18 115/75 95 Resident Activity Tracking Resident Involvement: Resident Care Provided Care Provided: Adult Hospital Medicine (1) Multiple fractures of ribs Encounter type: initial encounter Fracture type: closed Laterality: left Qualified Code(s): S22.42XA - Multiple fractures of ribs, left side, initial encounter for closed fracture (2) Syncope Syncope type: unspecified Qualified Code(s): R55 - Syncope and collapse
[2020-08-21 11:08] LABS: Hematocrit (blood only) 21.4 % (42-52); Hemoglobin 7.2 g/dL (14.0-18.0)
[2020-08-21] MEDS ORDERED: PERFLUTREN LIPID MICROSPHERE (DEFINITY) IV ONE (11:17)
[2020-08-21] MEDS ORDERED: fentaNYL citrate 100 MCG/2 ML VIAL ONE (12:12)
[2020-08-21] MEDS ORDERED: PROPOFOL IV EMULSION 10 MG/ML 20 ML VIAL IV ONE ×2 (12:12→14:46)
[2020-08-21] MEDS ORDERED: LIDOCAINE HCL 2% 2 ML VIAL/AMP(20MG/ML) INFIL ONE (12:12)
[2020-08-21] MEDS ORDERED: SODIUM CHLORIDE 0.9% 250 ML IV PRN (13:03)
[2020-08-21] MEDS ORDERED: ePHEDrine sulfate 50 MG/ML AMP IV PRN (14:04)
[2020-08-21] MEDS ORDERED: ATROPINE SULFATE 0.1 MG/ML 10ML SYR IV PRN (14:04)
--- NOTE | 2020-08-21 14:25 | Operative Report ---
Post Operative Report Pre & Post Diagnosis Operation Date: 08/21/20 11:00 Pre-Op Diagnosis: ACUTE GI BLEED, SYNCOPE Post-Op Diagnosis: ACUTE GI BLEED, SYNCOPE I identified the patient and participated in the time-out.: Yes Procedure Operation Date: 08/21/20 11:00 Actual Procedures p Esophagogastroduodenoscopy - Maria A Willson MD Surgeon Maria A Willson MD Interpreter Deaf None Estimated Blood Loss 0 Findings See Below (Superficial nonbleeding gastric ulcers) Specimens None Description of Procedure EGD I attest to the content of the Intraoperative Record and any orders documented therein. Any exceptions are noted below.
--- NOTE | 2020-08-21 14:29 | Gastroenterology Progress Note ---
Date of Service August 21, 2020 Assessment & Plan Admission and Anticipated Discharge Date Admission Date: August 20, 2020 Subjective EGD showed few small, superficial nonbleeding gastric ulcers, no active bleeding seen. Plan: Bowel prep today. Colonoscopy tomorrow. Clear liquids. Results & Data ([facility]) Vital Signs (Past 12 Hours) Vital Signs Temp Pulse Pulse Resp BP Pulse Ox 08/21/20 11:45 36.8 C 77 18 120/74 96 08/21/20 10:54 82 08/21/20 06:56 37.3 C 79 20 127/77 94 08/21/20 02:36 37.3 C 91 H 18 111/70 95
--- NOTE | 2020-08-21 14:37 | Anesthesiology Progress Note ---
Date of Service August 21, 2020 Anesthesia Post Procedure Vital Signs Vital Signs: Temp Pulse Pulse Pulse Resp BP BP 08/21/20 11:45 36.8 C 77 18 120/74 08/21/20 10:54 82 08/21/20 06:56 37.3 C 79 20 127/77 08/21/20 02:36 37.3 C 91 H 18 111/70 08/20/20 22:46 37.2 C 95 H 18 115/75 08/20/20 19:59 37.4 C 08/20/20 19:41 37.7 C H 93 H 18 126/78 08/20/20 16:10 93 H 08/20/20 16:09 36.8 C 84 16 113/76 08/20/20 15:00 81 21 121/82 Pulse Ox 08/21/20 11:45 96 08/21/20 10:54 08/21/20 06:56 94 08/21/20 02:36 95 08/20/20 22:46 95 08/20/20 19:59 08/20/20 19:41 95 08/20/20 16:10 08/20/20 16:09 08/20/20 15:00 96 Transfer of Care Handoff Completed per policy Notes Mental Status: alert / awake / arousable and participated in evaluation Patient Amnestic to Procedure: Yes Nausea / Vomiting: adequately controlled Pain: adequately controlled Airway Patency, RR, SpO2: stable & adequate BP & HR: stable & adequate Hydration State: stable & adequate Anesthetic Complications: no major complications apparent and Pt Satisfied with anesthetic care
--- NOTE | 2020-08-21 14:47 | GI REPORT ---
Patient Name: Jason Ibarra Procedure Date: 08/21/2020 10:41 AM Date of : 1955 Admit Type: Inpatient Age: 64 Gender: Male Attending MD: Maria A Willson MD Procedure: Upper GI endoscopy Providers: Maria A Willson MD Referring MD: Rick Linder Indications: Melena Medicines: Propofol per Anesthesia Complications: No immediate complications. Estimated Blood Loss: Estimated blood loss: none. Procedure: Pre-Anesthesia Assessment: - Prior to the procedure, a History and Physical was performed, and patient medications, allergies and sensitivities were reviewed. The patient's tolerance of previous anesthesia was reviewed. - The risks and benefits of the procedure and the sedation options and risks were discussed with the patient. All questions were answered and informed consent was obtained. - Patient identification and proposed procedure were verified prior to the procedure by the physician and the nurse. The procedure was verified in the procedure room. - Pre-procedure physical examination revealed no contraindications to sedation. After obtaining informed consent, the endoscope was passed under direct vision. Throughout the procedure, the patient's blood pressure, pulse, and oxygen saturations were monitored continuously. The Endoscope was introduced through the mouth, and advanced to the third part of duodenum. The upper GI endoscopy was accomplished without difficulty. The patient tolerated the procedure well. Findings: The examined esophagus was normal. Few non-bleeding superficial gastric ulcers with no stigmata of bleeding were found in the cardia, in the gastric body and in the gastric antrum. The largest lesion was 5 mm in largest dimension. The duodenal bulb, second portion of the duodenum and third portion of the duodenum were normal. Impression: - Normal esophagus. - Non-bleeding small superficial gastric ulcers with no stigmata of bleeding. - Normal duodenal bulb, second portion of the duodenum and third portion of the duodenum. Recommendation: - [facility]. - Clear liquid diet. - Bowel perp today and Perform a colonoscopy tomorrow. - Avoid NSAIDs. - PO PPI for 3 months. Maria A Willson MD 08/21/2020 2:47:21 PM This report has been signed electronically. Note Initiated On: 08/21/2020 10:41 AM Number of Addenda: 0 I attest to the content of the Intraoperative Record and orders documented therein, exceptions below {[id number]}
--- NOTE | 2020-08-21 15:14 | Billing Data ---
Date of Service August 21, 2020 Coding Level of Care Code 29283 Subseq Hosp Care Lvl 3
--- NOTE | 2020-08-21 15:15 | Billing Data ---
Date of Service August 21, 2020 Coding Level of Care Code 89028 Subseq Hosp Care Lvl 3
[2020-08-21] MEDS ORDERED: LAVAGE SOLUTION 4000ML PO SCH (16:00)
[2020-08-21 18:16] LABS: Hematocrit (blood only) 26.4 % (42-52)
[2020-08-22] MEDS: PANTOprazole 40 MG in DEXTROSE 5% 100 ML IV SCH ×4 (00:56→22:14)
[2020-08-22] MEDS: SODIUM CHLORIDE 0.45 % 1,000 ML IV SCH ×2 (04:08→16:51)
--- NOTE | 2020-08-22 08:17 | Anesthesiology Consultation ---
Date of Service August 22, 2020 Assessment & Plan (1) Encounter for pre-operative examination: Chart Review Chart Review: Acceptable Risk for Surgery and Patient NOT seen in Pre Admission Testing Consults Requested none History Surgery Operation Date: 08/21/20 11:00 Proposed Procedures p Esophagogastroduodenoscopy - Maria A Willson MD Operation Date: 08/22/20 08:30 Proposed Procedures p Colonoscopy Dr Roach - Jenifer Roach, DO Height/Weight Height: 5 ft 10 in Weight: 105.9 kg Allergies Allergy/AdvReac Type Severity Reaction Status Date / Time lisinopril AdvReac Mild cough Verified 08/21/20 11:22 Medications Home Medications Medication Instructions Recorded Confirmed Last Taken aspirin 325 mg tablet 325 mg PO DAILY #30 tab 03/02/19 08/20/20 Unknown hydrochlorothiazide 25 mg tablet 12.5 mg PO QAM tab 06/21/20 08/20/20 08/13/20 guselkumab 100 mg/mL subcutaneous 100 mg SQ .COMPLEX #1 ml 08/10/20 08/20/20 Unknown auto-injector losartan 100 mg PO QAM 08/20/20 08/20/20 08/19/20 Active Medications Generic Name Dose Route Start Last Admin Trade Name Freq PRN Reason Stop Dose Admin Pantoprazole Sodium 40 mg/ 100 mls @ 20 mls/hr 08/20/20 14:00 08/22/20 06:06 Dextrose IV 09/19/20 13:59 8 mg/hr Q5H ALBER 20 mls/hr Administration 8 MG/HR Sodium Chloride 1,000 mls @ 125 mls/hr 08/20/20 19:15 08/22/20 04:08 1/2 Nss IV 09/19/20 19:14 125 mls/hr .Q8H ALBER Administration NPO Date Last Intake of Fluids: 08/20/20 Time Last Intake of Fluids: 13:00 Date Last Intake of Solids: 08/20/20 Time Last Intake of Solids: 13:00 Past Medical History Medical History CVA (cerebral vascular accident) (~2013) Erectile disorder due to medical condition in male Gastric ulcer EGD (12/11) due to ongoing GI symptoms revealed nonbleeding gastric ulcer, duodenitits, esophagitis. [place] to be related to ASA use. Previously on chronic acid suppression with omeprazole Hyperlipidemia Hypertension Obstructive sleep apnea on CPAP Psoriasis Rib fracture Tubular adenoma of colon Screening colonoscopy (07/12) with tubular adenoma. 5 year follow up recommended (07/17) Past Family History Family History Mother Breast cancer Sister Breast cancer Father Myocardial infarction Grandfather Colon cancer maternal great grandfather Denies family history of Ovarian cancer Prostate cancer Past Surgical History Surgical History No history of previous surgery Social History Smoking Status: Never smoker Hx Alcohol Use: Yes Alcohol type: beer alcohol intake frequency: a few times a month Hx Substance Use: No Physical Exam Vital Signs Last Vital Signs Temp 36.8 C 08/22/20 07:20 Pulse 81 08/22/20 07:27 Resp 20 08/22/20 07:20 BP 138/83 08/22/20 07:20 Pulse Ox 95 08/22/20 07:20 Testing Laboratory Results 08/21/20 18:01 08/21/20 05:22 PT 11.3 Seconds (9.0-12.0) 08/20/20 11:09 INR 1.1 (0.9-1.1) 08/20/20 11:09 APTT 21.1 Seconds (21.0-31.0) 08/20/20 11:09 Blood Type A Positive 08/20/20 10:57 Antibody Screen NEGATIVE 08/20/20 10:57 08/20/20 14:37 Aerobic Blood Culture - Preliminary Blood No growth in Aerobic bottle after 24 hours. Anaerobic Blood Culture - Preliminary No growth in Anaerobic bottle after 24 hours. 08/20/20 12:57 Aerobic Blood Culture - Preliminary Blood No growth in Aerobic bottle after 24 hours. Anaerobic Blood Culture - Preliminary No growth in Anaerobic bottle after 24 hours. Electrocardiogram Date: 08/21/20 Sinus rhythm with Fusion complexes Nonspecific ST and T wave abnormality Abnormal ECG When compared with ECG of 26-FEB-2015 13:57, Fusion complexes are now Present Vent. rate has increased BY [address] now depressed in the inferior leads Nonspecific T wave abnormality, improved in Lateral leads Confirmed by Castillo Petit ([id number]) on 08/20/2020 12:20:29 PM Chest X-Ray Date: 08/20/20 PRESSION: 1. No acute cardiopulmonary abnormality. 2. Mild cortical irregularity involving the lateral left ninth rib. Correlate with point tenderness to exclude an acute rib fracture. Other Testing Head CT 08/20/20 IMPRESSION: No acute intracranial abnormality or calvarial fracture.
[2020-08-22 08:42] LABS: Basophils # (auto) 0.01 K/uL (0-0.2); Basophils % (auto) 0.2 %; Eosinophils % (auto) 1.5 %; Hematocrit (blood only) 23.8 % (42-52); Hemoglobin 8.1 g/dL (14.0-18.0); Immature Granulocytes # (auto) 0.03 K/uL (0.00-0.02); Immature Granulocytes % (auto) 0.5 %; Lymphocytes # (auto) 1.37 K/uL (1.2-3.4); Lymphocytes % (auto) 21.1 %; Mean Corpuscular Hemoglobin 31.6 pg (25-34); Mean Platelet Volume 9.3 fL (7.4-10.4); Monocytes # (auto) 0.72 K/uL (0.11-0.59); Monocytes % (auto) 11.1 %; Neutrophils # (auto) 4.26 K/uL (1.4-6.5); Neutrophils % (auto) 65.6 %; Platelet Count 169 K/uL (130-400); RDW Coefficient of Variation 14.1 % (11.5-14.5); RDW Standard Deviation 47.5 fL (36.4-46.3); Red Blood Count 2.56 M/uL (4.7-6.1); White Blood Count 6.49 K/uL (4.8-10.8)
--- NOTE | 2020-08-22 08:56 | History & Physical Report ---
Date of Service August 22, 2020 Assessment & Plan (1) Anemia: colonoscopy today Admission and Anticipated Discharge Date Admission Date: August 20, 2020 History of Present Illness Primary Care Provider: Emmett Cabrera DO anemia Allergies Allergy/AdvReac Type Severity Reaction Status Date / Time lisinopril AdvReac Mild cough Verified 08/21/20 11:22 Home Medications Medication Instructions Recorded Confirmed Type aspirin 325 mg tablet 325 mg PO DAILY #30 tab 03/02/19 08/20/20 History hydrochlorothiazide 25 mg tablet 12.5 mg PO QAM tab 06/21/20 08/20/20 History guselkumab 100 mg/mL subcutaneous 100 mg SQ .COMPLEX #1 ml 08/10/20 08/20/20 Rx auto-injector losartan 100 mg PO QAM 08/20/20 08/20/20 History Past Med/Surg History Medical History CVA (cerebral vascular accident) (~2013) Erectile disorder due to medical condition in male Gastric ulcer EGD (12/11) due to ongoing GI symptoms revealed nonbleeding gastric ulcer, duodenitits, esophagitis. [place] to be related to ASA use. Previously on chronic acid suppression with omeprazole Hyperlipidemia Hypertension Obstructive sleep apnea on CPAP Psoriasis Rib fracture Tubular adenoma of colon Screening colonoscopy (07/12) with tubular adenoma. 5 year follow up recommended (07/17) Surgical History No history of previous surgery Family History Mother Breast cancer Sister Breast cancer Father Myocardial infarction Grandfather Colon cancer maternal great grandfather Denies family history of Ovarian cancer Prostate cancer Social History Smoking Status: Never smoker Hx Alcohol Use: Yes Alcohol type: beer Hx Substance Use: No Preferred Language: Yakut Communication Ability: Effective Meat Service Team Member Required: No Beliefs That Will Affect Care: None marital status: / Current Living Situation: Alone current occupational status: employed current occupation: Musician Other Information That Helps Us Care for You: No Feels Safe at Home: Yes Safety Concerns: Feels Safe At This Time Childhood Exposure to Second-Hand Smoke: No Dental Care, Regularly: No Physical Activity Frequency: Daily Seatbelt Use: always Assistive Devices: Walker Physical Exam Constitutional: WD/WN, vitals as above Respiratory: normal respiratory effort, lungs clear to auscultation Cardiovascular: RRR, no murmur, no edema Gastrointestinal (Abdomen): normal bowel sounds, soft, nontender, no hepatosplenomegaly Results & Data ([facility]) Vital Signs (Past 12 Hours) Vital Signs Temp Pulse Pulse Resp BP Pulse Ox 08/22/20 08:38 37.5 C 78 18 161/103 H 96 08/22/20 07:27 81 08/22/20 07:20 36.8 C 72 20 138/83 95 08/22/20 03:18 37.3 C 79 15 134/75 94 08/22/20 00:51 79 08/22/20 00:05 37.5 C 86 23 144/79 H 93 Code Status & VTE Plan VTE Prophylaxis Plan VTE Prophylaxis will be ordered: Yes Reason for no VTE drug order: Contraindicated
--- NOTE | 2020-08-22 09:21 | GI REPORT ---
Patient Name: Jason Ibarra Procedure Date: 08/22/2020 8:38 AM Date of : 1955 Admit Type: Inpatient Age: 64 Gender: Male Attending MD: Jenifer Roach DO Procedure: Colonoscopy Providers: Jenifer Roach DO Referring MD: Rick Linder Indications: Iron deficiency anemia Medicines: Propofol per Anesthesia Complications: No immediate complications. Estimated blood loss: None. Estimated Blood Loss: Estimated blood loss: none. Procedure: Pre-Anesthesia Assessment: - Prior to the procedure, a History and Physical was performed, and patient medications, allergies and sensitivities were reviewed. The patient's tolerance of previous anesthesia was reviewed. - The risks and benefits of the procedure and the sedation options and risks were discussed with the patient. All questions were answered and informed consent was obtained. - Patient identification and proposed procedure were verified prior to the procedure by the physician and the nurse. The procedure was verified in the pre-procedure area in the procedure room. - Mental Status Examination: alert and oriented. Airway Examination: normal oropharyngeal airway and neck mobility. Respiratory Examination: clear to auscultation. CV Examination: normal. Abdominal Examination: bowel sounds present, abdomen soft and non-tender, no masses or organomegaly noted. - ASA Grade Assessment: III - A patient with severe systemic disease. After I obtained informed consent, the scope was passed under direct vision. Throughout the procedure, the patient's blood pressure, pulse, and oxygen saturations were monitored continuously. The scope was introduced through the anus and advanced to the terminal ileum. The colonoscopy was performed without difficulty. The patient tolerated the procedure well. The quality of the bowel preparation was good. Findings: The perianal and digital rectal examinations were normal. Pertinent negatives include normal sphincter tone and no palpable rectal lesions. The terminal ileum appeared normal. Multiple small and large-mouthed diverticula were found in the sigmoid colon. The retroflexed view of the distal rectum and anal verge was normal and showed no anal or rectal abnormalities. Impression: - The examined portion of the ileum was normal. - Diverticulosis in the sigmoid colon. - The distal rectum and anal verge are normal on retroflexion view. - No specimens collected. Recommendation: - [facility] care. Jenfier Roach D.O. Jenifer Roach DO 08/22/2020 9:20:32 AM This report has been signed electronically. Note Initiated On: 08/22/2020 8:38 AM Number of Addenda: 0 I attest to the content of the Intraoperative Record and orders documented therein, exceptions below {[id number]}
[2020-08-22] MEDS ORDERED: LIDOCAINE HCL 2% 2 ML VIAL/AMP(20MG/ML) INFIL ONE (09:23)
[2020-08-22] MEDS ORDERED: PROPOFOL IV EMULSION 10 MG/ML 20 ML VIAL IV ONE (09:23)
--- NOTE | 2020-08-22 09:40 | Gastroenterology Progress Note ---
Date of Service August 22, 2020 Assessment & Plan (1) Acute blood loss anemia: EGD showed small superficial ulcers. Colonoscopy showed only diverticulosis. - Advance diet - Follow H/H. - If concern remains for a GI source of blood loss, can arrange an outpatient VCE. - Please call with questions. Admission and Anticipated Discharge Date Admission Date: August 20, 2020 Subjective hgb 8.1 this AM. No melena or hematochezia with colonoscopy prep over night. Colonoscopy today without fresh or old blood. No source of GI blood loss identified in the colon or TI. No abd pain. hungry. Review of Systems Review of Systems: All systems reviewed & are unremarkable except as noted in HPI & below Physical Exam Constitutional: WD/WN, vitals as above Respiratory: normal respiratory effort, lungs clear to auscultation Cardiovascular: RRR, no murmur, no edema Gastrointestinal (Abdomen): normal bowel sounds, soft, nontender, no hepatosplenomegaly Results & Data ([facility]) Vital Signs (Past 12 Hours) Vital Signs Temp Pulse Pulse Resp BP Pulse Ox 08/22/20 09:21 76 18 147/82 H 96 08/22/20 08:38 37.5 C 78 18 161/103 H 96 08/22/20 07:27 81 08/22/20 07:20 36.8 C 72 20 138/83 95 08/22/20 03:18 37.3 C 79 15 134/75 94 08/22/20 00:51 79 08/22/20 00:05 37.5 C 86 23 144/79 H 93
--- NOTE | 2020-08-22 09:57 | Hospitalist Progress Note ---
Date of Service August 22, 2020 Assessment & Plan (1) Anemia: Jason is a 64yo M who presents with new onset melena and an episode of syncope and who is admitted for syncope and acute GIB Syncope, suspect vasovagal with concurrent GIB - GIB management as below - New systolic murmur on exam - TTE pending - Hgb acutely decreased as noted below - CT-H with naf, CT-C shows possible L rib fxr without other acute findings, Ct- Ab diverticulosis with no signs of mass, perf, or obstruction, CT-Spine negative but with incidental calcium carotid deposits, CT-nasal shows possible R nasal bone fxr. - ~1mm ST depressions appreciated on EKG. Pt without chest pain, chest pressure, SoB, shoulder pain, lightheadedness at time of assessment. Suspect demand related with acute GIB and tachycardia on admission, repeat pending. Acute Anemia 2/2 GIB - Baseline Hgb ~16. Decreased to 11 on admission, further decreased to 7.9 on followup H&H - Pt with hx of intermittent full dose aspirin use, no hx of NSAID use. Denies prior history of GERD, GI ulcers, and melena prior to 3 days before admission - Suspect acute bleed with subsequent dilutional anemia. No episode of melena today, no clinical signs of ongoing bleeding. HR 79, normotensive this morning - Continue protonix gtt - GI Consulted, anticipate endoscopy - Tranfusion threshold 7.0 - Repeat H&H pending HTN - Hold losartan - Continue hctz post procedure - Hold ASA FENGI: NPO. NSS 125cc/hr DVT PPx: Pharmacoppx contraindicated 2/2 acute bleed. SCDs. Dispo: MedTele Code Status: Full Code (2) Acute blood loss anemia: (3) Melena: (4) Syncope: (5) Multiple fractures of ribs: (6) Obstructive sleep apnea: (7) Tubular adenoma of colon: (8) Hypertension: (9) Hyperlipidemia: (10) CVA (cerebral vascular accident): Admission and Anticipated Discharge Date Admission Date: August 20, 2020 Results & Data Results & Data ([facility]) Vital Signs (Past 12 Hours) Vital Signs Temp Pulse Pulse Resp BP Pulse Ox 08/22/20 09:51 70 20 148/90 H 96 08/22/20 09:36 70 20 158/92 H 96 08/22/20 09:21 76 18 147/82 H 96 08/22/20 08:38 37.5 C 78 18 161/103 H 96 08/22/20 07:27 81 08/22/20 07:20 36.8 C 72 20 138/83 95 08/22/20 03:18 37.3 C 79 15 134/75 94 08/22/20 00:51 79 08/22/20 00:05 37.5 C 86 23 144/79 H 93 (1) Syncope Syncope type: unspecified Qualified Code(s): R55 - Syncope and collapse (2) Multiple fractures of ribs Encounter type: initial encounter Fracture type: closed Laterality: left Qualified Code(s): S22.42XA - Multiple fractures of ribs, left side, initial encounter for closed fracture
--- NOTE | 2020-08-22 10:30 | Anesthesiology Progress Note ---
Date of Service August 22, 2020 Anesthesia Post Procedure Vital Signs Vital Signs: Temp Pulse Pulse Pulse Resp BP Pulse Ox 08/22/20 10:14 36.6 C 72 18 165/89 H 96 08/22/20 09:51 70 20 148/90 H 96 08/22/20 09:36 70 20 158/92 H 96 08/22/20 09:21 76 18 147/82 H 96 08/22/20 08:38 37.5 C 78 18 161/103 H 96 08/22/20 07:27 81 08/22/20 07:20 36.8 C 72 20 138/83 95 08/22/20 03:18 37.3 C 79 15 134/75 94 08/22/20 00:51 79 08/22/20 00:05 37.5 C 86 23 144/79 H 93 08/21/20 19:40 37.1 C 76 18 134/78 92 08/21/20 17:25 37.1 C 80 18 130/78 97 08/21/20 16:29 37.1 C 73 18 132/80 96 08/21/20 15:45 36.6 C 74 18 129/79 95 08/21/20 15:09 37.0 C 73 18 128/81 99 08/21/20 14:50 36.6 C 71 18 134/76 99 08/21/20 14:40 73 20 126/74 99 08/21/20 14:33 36.7 C 73 12 121/71 100 08/21/20 11:45 36.8 C 77 18 120/74 96 08/21/20 10:54 82 Transfer of Care Handoff Completed per policy Notes Mental Status: alert / awake / arousable and participated in evaluation Nausea / Vomiting: adequately controlled Pain: adequately controlled Airway Patency, RR, SpO2: stable & adequate BP & HR: stable & adequate Hydration State: stable & adequate Anesthetic Complications: no major complications apparent and Pt Satisfied with anesthetic care
--- NOTE | 2020-08-22 10:37 | Medical Student Progress Note ---
Date of Service August 22, 2020 Assessment & Plan (1) Acute blood loss anemia: 64 yo M with PMH BPH, LUTS, chronic quintana, psoriasis, HTN, HLD, Tubular adenoma of colon, CVA admitted for abdominal distension and hematuria. -Hgb 8.1 from 9, baseline 16 -Elevated lactate 5.4 on admission, normalized 1.3 -pt presented with black stools, Hemoccult + in ED, likely to be secondary to upper GI bleed -s/p 1 unit RBCs on 08/21, hgb responded appropriately from 7.1 to 9.0 -EGD found few nonbleeding superficial gastric ulcers -Colonoscopy: -w-a-s- -b-m-l-x-k-z-b-f-d-b-l-e-, multiple diverticula noted --C-a-v-g-c-w-i-n-g- -w-i-t-h- GI consulted: recommended outpt VCE if acute blood loss anemia continues --H-o-k-t-i-n-u-e- CBC q6 (2) Syncope: -Likely secondary to acute blood loss anemia due to gastric ulcers in the setting of dehydration - Head CT showed no acute intracranial abnormality - Chest CT was remarkable for subtle nondisplaced ribs 3-6, no PE - EKG showed ST ~1mm ST depressions, with elevated troponins that downtrended - Echo showed no regional wall motion abnormalities, EF >70%, mild MR and TR with anterior Mitral valve leaflet anterior motion (likely cause of new murmur). Syncope type: unspecified Qualified Code(s): R55 - Syncope and collapse (3) Elevated troponin: -Likely secondary to demand ischemia in the setting of acute blood loss anemia -Elevated trop of .085, has downtrended to .07 -EKG and echo findings discussed as above - Asymptomatic, no complaints of CP, SOB, palpitations (4) Hypertension: - continue to hold home med losartan and Hctz -u-n-t-i-l- -C-B-C- -b-x-t-b-l-e- - - (5) CVA (cerebral vascular accident): -continue to hold aspirin 325 mg in setting of acute blood loss (6) DVT prophylaxis: -DVT prophylaxis: contraindicated in the setting of GI bleed -Diet: Heart healthy -Dispo: home pending PT/OT evals - Code: Full All changes above were discussed with the med student who wrote the initial note. Edits were made by myself in red, and deletions stricken. (7) Anemia: (8) Melena: (9) Multiple fractures of ribs: Encounter type: initial encounter Fracture type: closed Laterality: left Qualified Code(s): S22.42XA - Multiple fractures of ribs, left side, initial encounter for closed fracture (10) Obstructive sleep apnea: (11) Tubular adenoma of colon: (12) Hyperlipidemia: Admission and Anticipated Discharge Date Admission Date: August 20, 2020 Supervising Attestation Attending attestation Pt seen and examined in concert with Std Dr. Etienne, Dr Rose. In agreement with the documented findings as noted in the resident documentation with any exceptions or additions as noted here. No acute complaints at present. On examination, S1/S2 nl RRR no MCG. CTAB. Abd NT/ND BS+ve Acute blood loss anemia with syncope with supsected GIB - GI consultation appreciated s/p EGD and colonoscopy - continue PPI therapy, avoid AC presently. Trend CBC tonight and in AM. Transfuse at 7. Holding antihypertensives and ASA. Else see student/resident documentation as noted. Subjective Pt is a 64 yo M w/ a pmh of htn, hld, and CVA presented with melena and 1 episode of syncope admitted for acute blood loss anemia. ED course was significant for a Hgb of 11 (baseline Hgb 16) and Hemoccult + stool. Syncopal workup revealed EKG changes, which consisted of ~1mm ST depressions, elevated trop of .082-,- -a-n-d- -k-z-k-v-a-t-e-d- -w-j-s-t-a-t-e- -o-f- -5-.-6-. -U-n-q-p-i-t-a-l- -k-j-g-r-s-e- -w-a-s- -d-w-j-x-d-o-i-c-a-n-t- -f-o-r- S/P 1 unit pRBC transfusion on 08/21 with appropriate Hgb response from 7.1 to 9.0. Overnight there were no acute events. Nursing reports pt has been ambulating to and from the bathroom with no new episodes of syncope. Pt is NPO and was getting his colonoscopy this morning. Pt denies dizziness, lightheadedness, syncope, chest pain, shortness of breath, palpitations, and abdominal pain. Review of Systems Constitutional: denies fever, chills, fatigue, malaise Respiratory: denies cough, dyspnea Cardiovascular: Additional Comments: denies chest pain, palpitations Gastrointestinal: denies N/V, abdominal pain Physical Exam Constitutional: WD/WN, vitals as above Eyes: PERRL, conjunctivae normal, anicteric sclerae Respiratory: normal respiratory effort, lungs clear to auscultation Cardiovascular: RRR, no murmur, no edema Gastrointestinal (Abdomen): normal bowel sounds, soft, nontender Neurologic: awake, alert, and oriented X3 Results & Data ([facility]) Vital Signs (Past 12 Hours) Vital Signs Temp Pulse Pulse Resp BP Pulse Ox 08/22/20 10:14 36.6 C 72 18 165/89 H 96 08/22/20 09:51 70 20 148/90 H 96 08/22/20 09:36 70 20 158/92 H 96 08/22/20 09:21 76 18 147/82 H 96 08/22/20 08:38 37.5 C 78 18 161/103 H 96 08/22/20 07:27 81 08/22/20 07:20 36.8 C 72 20 138/83 95 08/22/20 03:18 37.3 C 79 15 134/75 94 08/22/20 00:51 79 08/22/20 00:05 37.5 C 86 23 144/79 H 93 Laboratory Results Laboratory Results WBC 6.49 K/uL (4.8-10.8) 08/22/20 07:43 RBC 2.56 M/uL (4.7-6.1) L 08/22/20 07:43 Hgb 8.2 g/dL (14.0-18.0) L 08/22/20 14:01 Hct 24.0 % (42-52) L 08/22/20 14:01 MCV 93.0 fL (80-100) 08/22/20 07:43 MCH 31.6 pg (25-34) 08/22/20 07:43 MCHC 34.0 g/dL (32-36) 08/22/20 07:43 RDW Std Deviation 47.5 fL (36.4-46.3) H 08/22/20 07:43 RDW Coeff of Aletha 14.1 % (11.5-14.5) 08/22/20 07:43 Plt Count 169 K/uL (130-400) 08/22/20 07:43 MPV 9.3 fL (7.4-10.4) 08/22/20 07:43 Immature Gran % (Auto) 0.5 % 08/22/20 07:43 Neut % (Auto) 65.6 % 08/22/20 07:43 Lymph % (Auto) 21.1 % 08/22/20 07:43 Cowley % (Auto) 11.1 % 08/22/20 07:43 Eos % (Auto) 1.5 % 08/22/20 07:43 Baso % (Auto) 0.2 % 08/22/20 07:43 Neut # (Auto) 4.26 K/uL (1.4-6.5) 08/22/20 07:43 Lymph # (Auto) 1.37 K/uL (1.2-3.4) 08/22/20 07:43 Cowley # (Auto) 0.72 K/uL (0.11-0.59) H 08/22/20 07:43 Eos # (Auto) 0.10 K/uL (0-0.5) 08/22/20 07:43 Baso # (Auto) 0.01 K/uL (0-0.2) 08/22/20 07:43 Immature Gran # (Auto) 0.03 K/uL (0.00-0.02) H 08/22/20 07:43 RBC Morphology Unremarkable 08/21/20 05:22 PT 11.3 Seconds (9.0-12.0) 08/20/20 11:09 INR 1.1 (0.9-1.1) 08/20/20 11:09 APTT 21.1 Seconds (21.0-31.0) 08/20/20 11:09 PTT Ratio 0.8 08/20/20 11:09 Sodium 143 mmol/L (136-145) 08/21/20 05:22 Potassium 4.1 mmol/L (3.5-5.1) 08/21/20 05:22 Chloride 113 mmol/L (98-107) H 08/21/20 05:22 Carbon Dioxide 30 mmol/L (21-32) 08/21/20 05:22 Anion Gap 0 (3-11) L 08/21/20 05:22 BUN 30 mg/dl (7-18) H 08/21/20 05:22 Creatinine 1.09 mg/dl (0.6-1.4) 08/21/20 05:22 Est Cr Clr Drug Dosing 85.6 ml/min 08/21/20 05:22 Est GFR ( Amer) 83.9 08/21/20 05:22 Est GFR (Non-Af Amer) 72.4 08/21/20 05:22 BUN/Creatinine Ratio 28.0 (10-20) H 08/21/20 05:22 Glucose 120 mg/dl (70-99) H 08/21/20 05:22 POC Glucose 115 mg/dl (70-99) H 08/20/20 20:10 Lactate 1.3 mmol/L (0.4-2.0) 08/21/20 11:44 Calcium 7.5 mg/dl (8.5-10.1) L 08/21/20 05:22 Total Bilirubin 0.7 mg/dl (0.2-1) 08/20/20 10:15 AST 18 U/L (15-37) 08/20/20 10:15 ALT 38 U/L (12-78) 08/20/20 10:15 Alkaline Phosphatase 46 U/L (45-117) 08/20/20 10:15 Troponin I 0.070 ng/ml (0-0.045) H* 08/22/20 07:37 Total Protein 6.3 gm/dl (6.4-8.2) L 08/20/20 10:15 Albumin 3.1 gm/dl (3.4-5.0) L 08/20/20 10:15 Globulin 3.2 gm/dl (2.5-4.0) 08/20/20 10:15 Albumin/Globulin Ratio 1.0 (0.9-2) 08/20/20 10:15 Lipase 69 U/L (73-393) L 08/20/20 10:15 Specimen Hemolysis 08/21/20 05:22 POC Stool Occult Blood Positive (Negative) A 08/20/20 11:35 Ethyl Alcohol mg/dL < 3.0 mg/dl (0-3) 08/20/20 12:57 COVID-19 Eval Order Covid19 IDNow [facility] 08/20/20 14:09 SARS-CoV-2, RNA, NAAT NEGATIVE (NEGATIVE) 08/20/20 14:09 Blood Type A Positive 08/20/20 10:57 Blood Type Recheck A Positive 08/21/20 05:22 Antibody Screen NEGATIVE 08/20/20 10:57 Crossmatch See Detail 08/20/20 10:[address] head/brain wo con IMPRESSION: No acute intracranial abnormality or calvarial fracture. CT facial bones wo con IMPRESSION: 1. Mild cortical irregularity involving the right nasal bone is suggestive of an age-indeterminate fracture. Correlate with point tenderness. CT cervical spine wo con IMPRESSION: No acute fracture or subluxation of the cervical spine. CHEST CT WITH CONTRAST; CT ABDOMEN AND PELVIS WITH IV CONTRAST ONLY IMPRESSION: 1. Mild cortical irregularity involving the anterior left third through sixth ribs is suspicious for subtle acute nondisplaced fractures. Correlate with point tenderness. No pneumothorax. 2. There is otherwise no acute intrathoracic, intra-abdominal or intrapelvic abnormality identified. XR chest 1V portable IMPRESSION: 1. No acute cardiopulmonary abnormality. Medications Administered -E-R- -i-f-d-t-b-o-t-i-o-n-s- -g-i-v-e-n-:- -D-m-c-v-b-f-t-h-z-o-l-e- -8-0- -m-g- -I-V- -N-S-S- -1- -h-o-u-r- -b-o-l-u-s- ECG Rate (beats per minute): 92 Additional Comments: -E-C-G- -L-n-w-j-k-c-t-i-o-n-:- -c-h-e-s-t- -p-a-i-n- -(-r-i-g-h-t- -l-o-w-e-r- -r-i-b-)- -R-a-t-e- -(-b-e-a-t-s- -p-e-r- -c-d-x-u-t-e-)-:- -9-2- -W-g-p-d-i-n-g-s-:- -+- -o-t-h-e-r- -(-L-y-i-e-r-i-o-r- -T- -w-a-v-e- -k-g-r-i-w-f-n-i-n--g- -x-1- -v-f-c-i-o-n- -q-q-w-o-k-m-x-e-s-)- -F-j-r-y-u-j-i-s-o-n- -E-C-G- -D-a-t-e-:- -f-r-o-m- -(-C-s-d-u-s-t- -1-,- -2-0-1-5-)- -O-m-s-n-g-e-:- -t-h-e- -r-j-z-c-p-l-i-n-g- -x-m-n-n-g-e-s- -n-o-t-e-d- -(-K-f-i-p-w-x-c-i-f-i-c- -T- -w-a-v-e- -j-t-l-z-k-d-i-t-y- -i-n- -e-q-w-e-r-i-o-r- -l-e-a-d-s- -i-s- -n-e-w-)- Resident interpretation of EKG: Sinus rhythm at regular rate of ~90 No QRS prolongation Previous inverted T waves on lateral chest leads now flattened Resident Activity Tracking Resident Involvement: Resident Care Provided Care Provided: [facility]
--- NOTE | 2020-08-22 11:13 | Electrocardiogram Report ---
Test Reason : Blood Pressure : / mmHG Vent. Rate : 079 BPM Atrial Rate : 079 BPM P-R Int : 152 ms QRS Dur : 088 ms QT Int : 384 ms P-R-T Axes : 034 028 045 degrees QTc Int : 440 ms Normal sinus rhythm Nonspecific T wave abnormality Abnormal ECG When compared with ECG of 20-AUG-2020 10:12, Fusion complexes are no longer Present Nonspecific T wave abnormality, worse in Lateral leads Confirmed by Larry Gutierrez ([id number]) on 08/22/2020 11:13:23 AM Referred By: REFERRED SELF Confirmed By:Ty Gutierrez
--- NOTE | 2020-08-22 11:38 | Electrocardiogram Report ---
Test Reason : Blood Pressure : / mmHG Vent. Rate : 071 BPM Atrial Rate : 071 BPM P-R Int : 162 ms QRS Dur : 082 ms QT Int : 374 ms P-R-T Axes : 029 053 029 degrees QTc Int : 406 ms Normal sinus rhythm Nonspecific T wave abnormality Abnormal ECG When compared with ECG of 21-AUG-2020 11:05, No significant change was found Confirmed by Larry Gutierrez ([id number]) on 08/22/2020 11:37:54 AM Referred By: REFERRED SELF Confirmed By:Ty Gutierrez
[2020-08-22 14:12] LABS: Hemoglobin 8.2 g/dL (14.0-18.0)
[2020-08-22] MEDS ORDERED: Nursing to Pharmacy Communication SCH (17:15)
[2020-08-22 20:11] LABS: Hematocrit (blood only) 23.8 % (42-52); Hemoglobin 8.1 g/dL (14.0-18.0)
[2020-08-23] MEDS: SODIUM CHLORIDE 0.45 % 1,000 ML IV SCH ×2 (01:20→09:44)
[2020-08-23] MEDS: PANTOprazole 40 MG in DEXTROSE 5% 100 ML IV SCH ×2 (02:54→08:01)
[2020-08-23 06:16] LABS: Basophils # (auto) 0.01 K/uL (0-0.2); Basophils % (auto) 0.2 %; Eosinophils # (auto) 0.19 K/uL (0-0.5); Eosinophils % (auto) 3.5 %; Hematocrit (blood only) 22.4 % (42-52); Hemoglobin 7.8 g/dL (14.0-18.0); Immature Granulocytes # (auto) 0.04 K/uL (0.00-0.02); Immature Granulocytes % (auto) 0.7 %; Lymphocytes # (auto) 1.38 K/uL (1.2-3.4); Lymphocytes % (auto) 25.2 %; Mean Corpuscular Hemoglobin 32.2 pg (25-34); Mean Corpuscular Hgb Conc 34.8 g/dL (32-36); Mean Corpuscular Volume 92.6 fL (80-100); Mean Platelet Volume 9.1 fL (7.4-10.4); Monocytes # (auto) 0.48 K/uL (0.11-0.59); Monocytes % (auto) 8.8 %; Neutrophils # (auto) 3.38 K/uL (1.4-6.5); Neutrophils % (auto) 61.6 %; Platelet Count 174 K/uL (130-400); RBC Morphology Unremarkable; RDW Standard Deviation 46.1 fL (36.4-46.3); Red Blood Count 2.42 M/uL (4.7-6.1); White Blood Count 5.48 K/uL (4.8-10.8)
--- NOTE | 2020-08-23 11:17 | Discharge Summary ---
Date of Service August 23, 2020 Admission HPI Per Admitting Provider anemia Discharge Data Allergies Allergy/AdvReac Type Severity Reaction Status Date / Time lisinopril AdvReac Mild cough Verified 08/21/20 11:22 Consultations 08/20/20 13:03 ED Decision to Admit Stat 08/20/20 17:15 Consult Gastroenterology Routine Procedures Performed Operation Date: 08/21/20 11:00 Actual Procedures p Esophagogastroduodenoscopy - Maria A Willson MD Operation Date: 08/22/20 08:30 Actual Procedures p Colonoscopy - Jenifer Roach DO Ordered Studies 08/20/20 10:32 CT abd pelvis IV con only Stat 08/20/20 10:37 CT cervical spine wo con Stat CT facial bones wo con Stat CT head/brain wo con Stat 08/20/20 11:36 CT chest diagnostic w con Stat Hospital Course (1) Acute blood loss anemia: 64 yo M with PMH BPH, LUTS, chronic quintana, psoriasis, HTN, HLD, Tubular adenoma of colon, CVA admitted for abdominal distension and hematuria. -Hgb 8.1 from 9, baseline 16 -Elevated lactate 5.4 on admission, normalized 1.3 -pt presented with black stools, Hemoccult + in ED, likely to be secondary to upper GI bleed -s/p 1 unit RBCs on 08/21, hgb responded appropriately from 7.1 to 9.0 -EGD found few nonbleeding superficial gastric ulcers -Colonoscopy: -w-a-s- -t-n-v-i-d-w-x-e-j-b-l-e-, multiple diverticula noted --C-y-a-g-r-w-i-n-g- -w-i-t-h- GI consulted: recommended outpt VCE if acute blood loss anemia continues --H-k-y-t-i-n-u-e- CBC q6 (2) Syncope: -Likely secondary to acute blood loss anemia due to gastric ulcers in the setting of dehydration - Head CT showed no acute intracranial abnormality - Chest CT was remarkable for subtle nondisplaced ribs 3-6, no PE - EKG showed ST ~1mm ST depressions, with elevated troponins that downtrended - Echo showed no regional wall motion abnormalities, EF >70%, mild MR and TR with anterior Mitral valve leaflet anterior motion (likely cause of new murmur). (3) Elevated troponin: -Likely secondary to demand ischemia in the setting of acute blood loss anemia -Elevated trop of .085, has downtrended to .07 -EKG and echo findings discussed as above - Asymptomatic, no complaints of CP, SOB, palpitations (4) Hypertension: - continue to hold home med losartan and Hctz -u-n-t-i-l- -C-B-C- -z-p-s-b-l-e- - - (5) CVA (cerebral vascular accident): -continue to hold aspirin 325 mg in setting of acute blood loss (6) DVT prophylaxis: -DVT prophylaxis: contraindicated in the setting of GI bleed -Diet: Heart healthy -Dispo: home pending PT/OT evals - Code: Full All changes above were discussed with the med student who wrote the initial note. Edits were made by myself in red, and deletions stricken. (7) Anemia: Jason is a 64yo M who presents with new onset melena and an episode of syncope and who is admitted for syncope and acute GIB Syncope, suspect vasovagal with concurrent GIB - GIB management as below - New systolic murmur on exam - TTE pending - Hgb acutely decreased as noted below - CT-H with naf, CT-C shows possible L rib fxr without other acute findings, Ct- Ab diverticulosis with no signs of mass, perf, or obstruction, CT-Spine negative but with incidental calcium carotid deposits, CT-nasal shows possible R nasal bone fxr. - ~1mm ST depressions appreciated on EKG. Pt without chest pain, chest pressure, SoB, shoulder pain, lightheadedness at time of assessment. Suspect demand related with acute GIB and tachycardia on admission, repeat pending. Acute Anemia 2/2 GIB - Baseline Hgb ~16. Decreased to 11 on admission, further decreased to 7.9 on followup H&H - Pt with hx of intermittent full dose aspirin use, no hx of NSAID use. Denies prior history of GERD, GI ulcers, and melena prior to 3 days before admission - Suspect acute bleed with subsequent dilutional anemia. No episode of melena today, no clinical signs of ongoing bleeding. HR 79, normotensive this morning - Continue protonix gtt - GI Consulted, anticipate endoscopy - Tranfusion threshold 7.0 - Repeat H&H pending HTN - Hold losartan - Continue hctz post procedure - Hold ASA FENGI: NPO. NSS 125cc/hr DVT PPx: Pharmacoppx contraindicated 2/2 acute bleed. SCDs. Dispo: MedTele Code Status: Full Code (8) Melena: (9) Multiple fractures of ribs: (10) Obstructive sleep apnea: (11) Tubular adenoma of colon: (12) Hyperlipidemia: Discharge Plan Discharge Items Reason For Visit: ACUTE GI BLEED, SYNCOPE Follow-up/Referrals: Emmett Cabrera DO [Primary Care Provider] - Medications and DC Order Prescriptions: No Action Tremfya 100 mg/mL auto-injector 100 mg SQ .COMPLEX Qty: 1 RF: 2 aspirin 325 mg tablet 325 mg PO DAILY Qty: 30 RF: 0 hydrochlorothiazide 25 mg tablet 12.5 mg PO QAM RF: 0 losartan 100 mg tablet 100 mg PO QAM RF: 0 Admission Data Admit Date/Time: 08/20/20 14:04 Attending Provider: Evelio Stevens Admit Provider: Tonny Paul Primary Care Provider: Emmett Cabrera Other Providers: Tonny Paul ; Maria A Willson ; Carmel Rose
--- NOTE | 2020-08-23 12:28 | Med Student Discharge Summary ---
Date of Service August 23, 2020 Admission HPI Per Admitting Provider Jason Ibarra is a 64 year old male who presents to the ER with melena, dizziness and a syncopal episode this morning. He reports intermittently taking his blood pressure medication and was out of them for a few days but then took both losartan and HCTZ yesterday. He started having dizziness especially when standing. He also noted black stools that increased throughout the day. He denies any NSAID use, although he does take aspirin 325mg PO intermittently (unsure when he last took this). He does note drinking wine 1-2/day but reports last having alcohol 2 days ago with one beer. He denies any heavy alcohol use. No history of gastric ulcers or GI bleeds in the past. In the ER hemoglobin 11.0 from 16.1 in May. He underwent extensive imaging due to his syncopal episode which revealed mild cortical irregularities involving the anterior left 3-6 ribs suspicious for acute nondisplaced fractures however the patient was having no pain over this area. Additional mild cortical irregularity involving the right nasal bone was suggestive for an age- indeterminate fracture which to correlate with pain over this area. Incidental finding of a large periapical cyst in the left third maxillary molar -he denies any having any pain here but does have a noticeable cavity. Admission Exam (Per Admitting) Constitutional well developed and well nourished; no acute distress Eyes +anicteric sclerae; no conjunctival abnormality and normal pupil size ENMT Ears: no external ear abnormality Nose: + external nose abnormality Mouth: + dry oral mucous membranes Neck trachea midline, no thyromegaly Respiratory normal respiratory effort, lungs clear to auscultation Cardiovascular Rate/ Rhythm: regular rate and regular rhythm Heart Sounds: no murmur Vessels: no JVD Extremities: normal capillary refill; no calf tenderness and no pedal edema Gastrointestinal (Abdomen) Inspection/ Auscultation: normal bowel sounds, abdomen not distended Percussion/ Palpation: + abdomen tender (mild LUQ on deep palpation) and abdomen soft; no guarding and abdomen not rigid Musculoskeletal no cyanosis or clubbing, extremities motor strength 5/5 Skin no rashes, warm and dry Neurologic moves all extremities and awake; no focal motor deficits and not confused Psychiatric A+Ox3, euthymic affect Genitourinary no CVA tenderness Discharge Data Consultations 08/20/20 13:03 ED Decision to Admit Stat 08/20/20 17:15 Consult Gastroenterology Routine Procedures Performed Operation Date: 08/21/20 11:00 Actual Procedures p Esophagogastroduodenoscopy - Maria A Willson MD Operation Date: 08/22/20 08:30 Actual Procedures p Colonoscopy - Jenifer Roach, Hospital Course (1) Acute blood loss anemia: 64 yo M with PMH BPH, LUTS, chronic quintana, psoriasis, HTN, HLD, Tubular adenoma of colon, CVA admitted for abdominal distension and hematuria. -Hgb 7.8 from 8.1, baseline 16 -Elevated lactate 5.4 on admission, normalized 1.3 -pt presented with black stools, Hemoccult + in ED, likely to be secondary to upper GI bleed -s/p 1 unit RBCs on 08/21, hgb responded appropriately from 7.1 to 9.0 -EGD found few nonbleeding superficial gastric ulcers -Colonoscopy: multiple diverticula noted GI consulted: recommended outpt VCE if acute blood loss anemia continues (2) Syncope: -Likely secondary to acute blood loss anemia due to gastric ulcers in the setting of dehydration - Head CT showed no acute intracranial abnormality - Chest CT was remarkable for subtle nondisplaced ribs 3-6, no PE - EKG showed ST ~1mm ST depressions, with elevated troponins that downtrended - Echo showed no regional wall motion abnormalities, EF >70%, mild MR and TR with anterior Mitral valve leaflet anterior motion (likely cause of new murmur). (3) Elevated troponin: -Likely secondary to demand ischemia in the setting of acute blood loss anemia -Elevated trop of .085, has downtrended to .07 -EKG and echo findings discussed as above - Asymptomatic, no complaints of CP, SOB, palpitations (4) Hypertension: - continue to hold home med losartan and Hctz (5) CVA (cerebral vascular accident): -continue to hold aspirin 325 mg in setting of acute blood loss (6) DVT prophylaxis: -DVT prophylaxis: contraindicated in the setting of GI bleed -Diet: Heart healthy -Dispo: home - Code: Full Discharge Plan Discharge Items Patient Disposition: Home - Self-Care Reason For Visit: ACUTE GI BLEED, SYNCOPE Discharge Diagnosis: GIB, SYNCOPE Activity: Resume your previous activity Non-emergency contact: Primary Care Provider Call non-emergency contact if: your symptoms worsen Follow-up/Referrals: Emmett Cabrera, [Primary Care Provider] - 08/30/20 11:30 am (You have an appt with Dr. Coffman on 08/30 @ 7906. Please arrive 15 minutes prior to appt, it is important that you keep this appt. If for any reason this appt does not fit your schedule, pleae call [phone] reschedule. ) Diet: Low Sodium (2gm) Addtl Attending Provider Instructions: You were seen in the emergency department for a syncopal episode and dizzines that was found to be due to a low hemoglobin level and likely dehydration. You were evaluated by the Gastroenterology team to see if there was a bleed in your GI tract causing the blood loss and dizziness. The upper GI scope (EGD) showed non-bleeding ulcers in your stomach that was likely the cause of the bleeding. The colonoscopy did not find any bleeding or abnormalities in your colon other than diverticulosis, which is common. You will need to take Pantoprazole twice a day for 3 months to help heal and prevent future ulcerations. You should be taking a daily baby aspirin 81 mg for stroke prevention. Medications to avoid to decrease chances of stomach ulceration include: NSAIDs (ibuprofen, advil) Follow up with your primary care provider this week. Your blood pressure medications were stopped during your hospital stay; talk with your primary care provider about which ones you need to restart. If you have symptoms of dizziness, lightheadedness, dark or black stool, blood in stool, or vomit that is bloody or looks like coffee grounds -- return to the ER for medical care. Pending Studies at Discharge: No Stand-Alone Forms: [facility], Smoking Cessation Medications and DC Order Prescriptions: New aspirin 81 mg tablet,delayed release (DR/EC) 81 mg PO DAILY Qty: 30 RF: 0 pantoprazole 40 mg tablet,delayed release (DR/EC) 40 mg PO BID 90 Days Qty: 180 RF: 0 Continued Tremfya 100 mg/mL auto-injector 100 mg SQ .COMPLEX Qty: 1 RF: 2 hydrochlorothiazide 25 mg tablet 12.5 mg PO QAM RF: 0 losartan 100 mg tablet 100 mg PO QAM RF: 0 Discontinued aspirin 325 mg tablet 325 mg PO DAILY Qty: 30 RF: 0 Discharge Orders: Discharge Order (Routine); Ordered 08/23/20 Ordered By: Carmel Rose Admission Data Admit Date/Time: 08/20/20 14:04 Attending Provider: Evelio Stevens Admit Provider: Tonny Paul Primary Care Provider: Emmett Cabrera Other Providers: Tonny Paul ; Maria A Willson ; Carmel Rose Other Interventions: Discharge Summary Assessment (RN) Last Done: 08/23/20 13:12 Supervising Attestation Attending attestation Pt seen and examined in concert with Std Dr. Milton Rendon. In agreement with the documented findings as noted in the resident documentation with any exceptions or additions as noted here. No acute complaints nor return of dizziness with ambulation around the floor. On examination, S1/S2 nl RRR no MCG. CTAB. Abd NT/ND BS+ve Acute blood loss anemia in the setting of suspecting GIB with neg colonoscopy, EGD with nonbleeding superficial ulcers - PPI BID x 3 months with close outpatient follow up and repeat CBC. GI consultation rec'd VCE if CBC does not improve. Syncopal episode - likely 2/2 anemia above - imaging, echo and EKG as noted. Management as above. h/o CVA - holding ASA - with borderline low hgb & h/o CVA would consider restart based on results of CBC at outpatient follow up HTN - home BP medications held while inpatient 2/2 GIB - consider restart on outpatient follow up Else see student/resident documentation as noted. Total time spent with this patient's case on day of discharge: 35 minutes.
== END 2020-08-23 14:11 | disposition home or self-care (01) | DRG 811 ==
LOC: ED 09:49 → SUATTDRO 14:04 → 2N 14:04